=== PATIENT | male | born 1955 | race Caucasian/White ===

== ENCOUNTER 2016-06-21 02:35 | Emergency (ER) | payer OTHER ==
[~2016-06-21] VITALS: Ht 177.8 cm; Wt 95.0 kg
[2016-06-21 02:47] VITALS: BP 133/84; PULSE 82; RESP 16; TEMP 98.3; O2SAT 95
[2016-06-21] MEDS ORDERED: LISI10TA3 PO (02:47)
[2016-06-21] MEDS ORDERED: METF500T PO (02:47)
[2016-06-21] MEDS ORDERED: KETOROLAC TROMETHAMINE 60 MG/2 ML (IM) VIAL IM ONE (03:15)
--- NOTE | 2016-06-21 03:16 | PD ---
HPI Chief Complaint: Fall Time Seen by Provider: 03:13 Travel History International Travel<30 days: No Contact w/Intl Traveler<30days: No Traveled to known affect area: No History of Present Illness HPI 60-year-old white male presents to emergency department by EMS for evaluation of a fall. The patient states that he is currently homeless. [place] He states that [place] and anticipated it only to be a few feet. The patient states that the distance was much greater and fell onto his left side. He denies syncope. He is complaining of pain in his left upper back and ribs. States the pain is mild to moderate. Worse with movement, sitting up and taking a deep breath. He denies injury to his head, neck or lower back. No extremity injury. No injury to his chest anteriorly or to his abdomen. He states that he was traveling from [place] on his way to a woman's house in [facility] when his car broke down. He states he is now homeless on the streets. He is in the process of attempting to get a new vehicle. The patient states that he is disabled. He admits to diabetes and hypertension. Drinks occasionally. No tobacco. PFSH Past Medical History Narrative Medical Chronic neck pain, diabetes, hypertension, homelessness Diabetes: Yes Patient Takes Glucophage: Yes Diminished Hearing: No Hypertension: Yes Tetanus Vaccination: Unknown Influenza Vaccination: No Past Surgical History Narrative Surgical Tonsillectomy Tonsillectomy: Yes Social History Alcohol Use: Yes (RARELY) Tobacco Use: No Substance [facility]: Yes [facility] Allergies-Medications (Allergen,Severity, Reaction): Coded Allergies: No Known Allergies (Unverified , 06/21/16) Reported Meds & Prescriptions Reported Meds & Active Scripts Active Reported Metformin (Metformin HCl) 500 Mg Tab 500 Mg PO BIDPC With meals Lisinopril 10 Mg Tab 10 Mg PO DAILY Review of Systems Except as stated in HPI: all other systems reviewed are Neg Physical Exam Narrative GENERAL: Well-developed, well-nourished in no apparent distress. Nontoxic appearing. HEAD: Normocephalic, atraumatic. EYES: Pupils equal round and reactive. Extraocular motions intact. No scleral icterus. No injection or drainage. ENT: Nose clear. Throat without erythema, tonsillar hypertrophy or exudate. Uvula midline. Airway patent. NECK: Trachea midline. Supple, nontender, moves head freely. No central bony tenderness or spasm. CARDIOVASCULAR: Regular rate and rhythm without murmurs, gallops, or rubs. RESPIRATORY: Clear to auscultation. Breath sounds equal bilaterally. No wheezes , rales, or rhonchi. CHEST: Mild tenderness to the left posterior ribs just below the scapula. Without deformity or crepitance. No retractions or use of accessory muscles. GASTROINTESTINAL: Abdomen soft, non-tender, nondistended. No hepato-splenomegaly , or palpable masses. No guarding. EXTREMITIES: No clubbing, cyanosis, or edema. No joint tenderness. BACK: Nontender without deformity. No flank tenderness. NEUROLOGICAL: Awake, alert and oriented x 3 .Cranial nerves grossly intact. Motor and sensory grossly within normal limits. Normal speech. Data Data Last Documented VS Vital Signs Date Time Temp Pulse Resp B/P Pulse Ox O2 Delivery O2 Flow Rate FiO2 06/21/16 02:47 98.3 82 16 133/84 95 Orders Ribs, Uni (W/Exp Cxr-Min 3vw) (06/21/16 03:03) Ketorolac Inj (Toradol Inj) (06/21/16 03:15) [facility] Medical Decision Making Medical Screen Exam Complete: Yes Emergency Medical Condition: Yes Medical Record Reviewed: Yes Interpretation(s) Last 24 hours Impressions Ribs X-Ray 06/21/16 0303 Signed Impressions: Service Date/Time: Tuesday, June 21, 2016 03:15 - CONCLUSION: Normal examination for a patient of this age. Jae Arredondo MD Differential Diagnosis MDM: High Differential diagnoses: Fracture, sprain, strain, dislocation, contusion, neurovascular injury Narrative Course Patient given Toradol 60 mg IM. X-rays are negative. This is left rib contusion, fall Diagnosis Primary Impression: Contusion of rib on left side Qualified Code: S20.212A - Contusion of rib on left side, initial encounter Additional Impression: Fall Qualified Code: W19.XXXA - Fall, initial encounter Patient Instructions: General Instructions Additional Instructions: Rest. Ice for the next 3 days followed by heat . Flexeril and Voltaren. Deep breaths every half hour. Follow-up with a primary care doctor in one week. Return to the ER for emergencies. Med/Other Pt SpecificInfo: Prescription(s) given Scripts Cyclobenzaprine (Flexeril)10 Mg Tab10 Mg PO TID #21 TAB Prov:Arlette Varner MD 06/21/[address] 75 Mg Tabdr75 Mg PO BID #20 TAB Prov:Arlette Varner MD 06/21/16 Disposition: 01 DISCHARGE HOME Condition: Stable Jae Verduzco Jun 21, 2016 03:16
--- NOTE | 2016-06-21 03:34 | RADRPT ---
EXAM DATE/TIME: 06/21/2016 03:15 [facility] COMPARISON: No previous studies available for comparison. INDICATIONS : Left side rib pain post fall. MEDICAL HISTORY : None. SURGICAL HISTORY : None. ENCOUNTER: Initial ACUITY: 1 day PAIN SCORE: 9/10 LOCATION: Left ribs. FINDINGS: Multiple views of the left ribs were performed. There is no evidence of displaced fracture. No dest ructive lesions or areas of periosteal thickening are seen. Expiratory view of the chest is negative for pneumothorax. The mediastinal structures are midline. CONCLUSION: Normal examination for a patient of this age. Jae Arredondo MD on June 21, 2016 at 3:30 Board Certified Radiologist. This report was verified electronically.
[2016-06-21] MEDS ORDERED: CYCL1TAB29 PO (03:43)
[2016-06-21] MEDS ORDERED: DICL75TA PO (03:43)
== END 2016-06-21 04:31 | disposition home or self-care (01) ==
LOC: EDSEX → NEPB 02:35
DX: S20.212A Contusion of left front wall of thorax, initial encounter (principal); W17.89XA Other fall from one level to another, initial encounter; Y92.832 Beach as the place of occurrence of the external cause; I10 Essential (primary) hypertension; E11.9 Type 2 diabetes mellitus without complications; G89.29 Other chronic pain; Z59.0 Homelessness
CPT/HCPCS: 71101; 96372; J1885

== ENCOUNTER 2016-06-23 09:28 | Inpatient (IN) | payer OTHER, MEDICARE ==
[~2016-06-23] VITALS: Ht 177.8 cm; Wt 122.0 kg
[~2016-06-23 09:28] MED LIST: CYCL1TAB29 PO; DICL75TA PO; LISI10TA3 PO; METF500T PO
[2016-06-23 09:30] VITALS: BP 115/65; PULSE 112; RESP 20; TEMP 98.6; O2SAT 94
--- NOTE | 2016-06-23 10:06 | RADRPT ---
EXAM DATE/TIME: 06/23/2016 09:52 [facility] COMPARISON: No previous studies available for comparison. INDICATIONS: Chest pain. MEDICAL HISTORY: None. SURGICAL HISTORY: None. ENCOUNTER: Initial ACUITY: 1 day PAIN SCORE: 6/10 LOCATION: Left middle chest FINDINGS: A single view of the chest demonstrates there is some air in the left chest wall suspicious for an un derlying pneumothorax. I cannot demonstrate a pneumothorax on today's film on the left side although obviously I am concerned about it. No displaced rib fractures identified. Right lung is clear. He art and mediastinum unremarkable. CONCLUSION: Air within the left chest wall concerning for a left pneumothorax although I cannot clearly demonstra te that on today's single film. lEvis Blanco MD on June 23, 2016 at 9:58 Board Certified Radiologist. This report was verified electronically.
[2016-06-23 10:37] VITALS: BP 129/75; PULSE 100; RESP 18; TEMP 98.2; O2SAT 92
[2016-06-23 10:41] LABS: AUTOMATED NEUTROPHIL # 4.8 TH/MM3 (1.8-7.7); BASOPHIL % 0.2 % (0.0-2.0); EOSINOPHIL # 0.1 TH/MM3 (0-0.4); EOSINOPHIL % 1.8 % (0.0-4.0); HEMATOCRIT 29.2 % (39.0-51.0); HEMO FLAGS DIFF FINAL; LYMPH % 20.6 % (9.0-44.0); LYMPHOCYTE # 1.4 TH/MM3 (1.0-4.8); MEAN CELL VOLUME 92.4 FL (80.0-100.0); MEAN CORPUSCULAR HEMOGLOBIN 31.6 PG (27.0-34.0); MEAN CORPUSCULAR HGB CONC 34.2 % (32.0-36.0); MONO % 7.1 % (0.0-8.0); NEUT % 70.3 % (16.0-70.0); PLATELET COUNT 124 TH/MM3 (150-450); RED BLOOD COUNT 3.16 MIL/MM3 (4.50-5.90); RED CELL DISTRIBUTION WIDTH 12.4 % (11.6-17.2); WHITE BLOOD COUNT 6.8 TH/MM3 (4.0-11.0)
[2016-06-23] MEDS ORDERED: ASPI81CH CHEW (10:46)
[2016-06-23 10:56] LABS: ANION GAP 9 MEQ/L (5-15); BICARBONATE 22.4 MEQ/L (21.0-32.0); BLOOD UREA NITROGEN 26 MG/DL (7-18); CHLORIDE 100 MEQ/L (98-107); GLOMERULAR FILTRATION RATE 45 ML/MIN (>89); POTASSIUM 3.7 MEQ/L (3.5-5.1); SODIUM (NA) 131 MEQ/L (136-145)
[2016-06-23 11:01] LABS: CREATINE KINASE 245 U/L (39-308)
[2016-06-23 11:13] LABS: CKMB 2.5 NG/ML (0.5-3.6)
[2016-06-23] MEDS ORDERED: IOHEXOL 350 MG/ML 10 ML VIAL (for RAD DIAG) IV ONE (12:18)
--- NOTE | 2016-06-23 12:28 | RADRPT ---
EXAM DATE/TIME: 06/23/2016 11:47 [facility] COMPARISON: No previous studies available for comparison. INDICATIONS : Fall two days ago, left side chest and abdomen pain since. IV CONTRAST: 98 cc Omnipaque 350 (iohexol) IV ; Cumulative dose for multiple exams. ORAL CONTRAST: No oral contrast ingested. RADIATION DOSE: 19.49 CTDIvol (mGy) ; Combined studies - Thorax/Abdomen/Pelvis MEDICAL HISTORY : Hypertension. Diabetes mellitus type 2. SURGICAL HISTORY : Tonsillectomy. ENCOUNTER: Initial ACUITY: 2 days PAIN SCALE: 7/10 LOCATION: Left upper quadrant TECHNIQUE: Volumetric scanning of the abdomen and pelvis was performed. Using automated exposure control and ad justment of the mA and/or kV according to patient size, radiation dose was kept as low as reasonably achievable to obtain optimal diagnostic quality images. FINDINGS: Imaging through the lower chest demonstrates a very small anterior pneumothorax on the left. There is extensive subcutaneous emphysema throughout the anterior chest wall and extending along the left up into the left axilla. The appearance of the liver is within normal limits. The exam demonstrates a splenic contusion with a small subcapsular hematoma around the spleen. There is no evidence of active hemorrhage. The examina tion also demonstrates a small amount of hemorrhage in Morison's pouch on the right. The pancreas, adrenal glands and kidneys are intact. There is no retroperitoneal lymphadenopathy. The abdominal aorta is normal in caliber. The visualized loops of small and large bowel are unremarkable. There is a small amount of high density free fluid in the pelvis. No iliac or inguinal adenopathy is seen. The loops of small large bowel are unremarkable. The visualized osseous structures demonstrate a moderately displaced fracture of the left seventh rib . CT imaging of the thorax would be of benefit for further assessment. CONCLUSION: 1. Fracture of the left seventh rib with a very small anterior pneumothorax on the left. 2. Small pleural effusion on the left. 3. Sizable area of contusion within the spleen with subcapsular hemorrhage and a small amount hemorrh age in Morison's pouch as well as the pelvis. No active hemorrhage is identified. Keith Mg MD on June 23, 2016 at 12:19 Board Certified Radiologist. This report was verified electronically.
--- NOTE | 2016-06-23 12:33 | RADRPT ---
EXAM DATE/TIME: 06/23/2016 11:47 [facility] COMPARISON: CT ABDOMEN & PELVIS W CONTRAST, June 23, 2016, 11:47. INDICATIONS : Fall two days ago, left side chest and abdomen pain since. IV CONTRAST: 98 cc Omnipaque 350 (iohexol) IV ; Cumulative dose for multiple exams. RADIATION DOSE: 19.49 CTDIvol (mGy) ; Combined studies - Thorax/Abdomen/Pelvis MEDICAL HISTORY : Hypertension. Diabetes mellitus type 2. SURGICAL HISTORY : Tonsillectomy. ENCOUNTER: Initial ACUITY: 2 days PAIN SCALE: 7/10 LOCATION: Left lateral chest. TECHNIQUE: Volumetric scanning of the chest was performed. Using automated exposure control and adjustment of t he mA and/or kV according to patient size, radiation dose was kept as low as reasonably achievable to obtain optimal diagnostic quality images. FINDINGS: The examination demonstrates extensive subcutaneous emphysema throughout the chest wall. There is very minimal anterior pneumothorax on the left. There is a small left-sided pleural effusion . The heart is normal in size. No pericardial effusion is evident. There is atherosclerotic plaquing in the coronary arteries. Bone windowed images demonstrate fracture of the anterolateral fourth through sixth ribs. There is fr acture of the medial aspect of the seventh, eighth, ninth and 10th ribs at the costovertebral margin. The remainder the visualized osseous structures are intact. The portions of upper abdomen visualized demonstrate a size where a splenic contusion with subcapsula r hemorrhage around the spleen. CONCLUSION: 1. Extensive subcutaneous emphysema. 2. Very small anterior pneumothorax on the left. 3. Fracture of the anterolateral fourth through sixth ribs. 4. Fracture of the medial aspect of the seventh, eighth, ninth and 10th ribs at the costovertebral ma rgin. 5. Sizable splenic contusion with subcapsular hematoma. 6. Minimal pleural effusion the left lung base. Keith Mg MD on June 23, 2016 at 12:26 Board Certified Radiologist. This report was verified electronically.
--- NOTE | 2016-06-23 13:41 | PD ---
HPI Chief Complaint: Chest Pain Time Seen by Provider: 10:30 Travel History International Travel<30 days: No Contact w/Intl Traveler<30days: No Traveled to known affect area: No History of Present Illness HPI This is a 60-year-old male who reports that he [place] 2 nights ago thinking it was going to be 2 feet and ended up being 20 feet. He says he landed on his left side. Ever since then he's been having severe left- sided chest pain and abdominal pain, constant, moderate severity, worse with walking, improved with rest. Patient went to [place] emergency department that evening and was discharged home. He subsequently was seen in our emergency department yesterday and had a chest x-ray performed which was reassuring and was discharged home. Patient presents today because his pain is persistent. PFSH Past Medical History Cancer: Yes (HX OF SKIN CA ) Diabetes: Yes Patient Takes Glucophage: Yes (METFORMIN) Diminished Hearing: No Hypertension: Yes Past Surgical History Tonsillectomy: Yes Social History Alcohol Use: Yes (RARELY) Tobacco Use: No Substance Use: Yes (MARAJUIANA) Allergies-Medications (Allergen,Severity, Reaction): Coded Allergies: No Known Allergies (Unverified , 06/21/16) Reported Meds & Prescriptions Reported Meds & Active Scripts Active Flexeril (Cyclobenzaprine HCl) 10 Mg Tab 10 Mg PO TID Diclofenac Sodium DR (Diclofenac Sodium) 75 Mg Tabdr 75 Mg PO BID Reported Aspirin 81 Mg Chew 81 Mg CHEW DAILY Metformin (Metformin HCl) 500 Mg Tab 500 Mg PO BIDPC With meals Lisinopril 10 Mg Tab 10 Mg PO DAILY Review of Systems Except as stated in HPI: all other systems reviewed are Neg Physical Exam Narrative GENERAL:Well appearing, no acute distress SKIN: Large hematoma along the left flank with ecchymoses involving the umbilicus HEAD: Atraumatic. Normocephalic. EYES: Pupils equal and round. No injection or drainage. ENT: Moist mucous membranes NECK: Trachea midline. CARDIOVASCULAR: Regular rate and rhythm. No murmur appreciated. RESPIRATORY: Clear to auscultation. Breath sounds equal bilaterally. GASTROINTESTINAL: Abdomen soft, diffusely mildly tender to palpation with no rebound or guarding. MUSCULOSKELETAL: No obvious deformities. NEUROLOGICAL: Awake and alert. No obvious cranial nerve deficits. Moving all extremities. PSYCHIATRIC: Appropriate mood and affect; insight and judgment normal. Data Data Last Documented VS Vital Signs Date Time Temp Pulse Resp B/P Pulse Ox O2 Delivery O2 Flow Rate FiO2 06/23/16 10:42 97 20 93 Nasal Cannula 2 06/23/16 10:37 98.2 129/75 Orders Electrocardiogram (06/23/16 09:43) Complete Blood Count With Diff (06/23/16 09:43) Basic Metabolic Panel (Bmp) (06/23/16 09:43) Ckmb (Isoenzyme) Profile (06/23/16 09:43) Troponin I (06/23/16 09:43) Chest, Single Ap (06/23/16 09:43) Iv Access Insert/Monitor (06/23/16 09:43) Ecg Monitoring (06/23/16 09:43) Oxygen Administration (06/23/16 09:43) Oximetry (06/23/16 09:43) CKMB (06/23/16 10:11) CKMB% (06/23/16 10:11) Ct Thorax/ Chest W Iv Contrast (06/23/16 ) Ct Abd/Pel W Iv Contrast(Rout) (06/23/16 ) Type And Screen (06/23/16 11:17) Prothrombin Time / Inr (Pt) (06/23/16 11:17) Act Partial Throm Time (Ptt) (06/23/16 11:17) Iohexol 350 Inj (Omnipaque 350 Inj) (06/23/16 12:18) Admit Order (Ed Use Only) (06/23/16 13:20) Labs Laboratory Tests Test 06/23/16 06/23/16 10:11 11:20 White Blood Count 6.8 TH/MM3 Red Blood Count 3.16 MIL/MM3 Hemoglobin 10.0 GM/DL Hematocrit 29.2 % Mean Corpuscular Volume 92.4 FL Mean Corpuscular Hemoglobin 31.6 PG Mean Corpuscular Hemoglobin 34.2 % Concent Red Cell Distribution Width 12.4 % Platelet Count 124 TH/MM3 Mean Platelet Volume 8.5 FL Neutrophils (%) (Auto) 70.3 % Lymphocytes (%) (Auto) 20.6 % Monocytes (%) (Auto) 7.1 % Eosinophils (%) (Auto) 1.8 % Basophils (%) (Auto) 0.2 % Neutrophils # (Auto) 4.8 TH/MM3 Lymphocytes # (Auto) 1.4 TH/MM3 Monocytes # (Auto) 0.5 TH/MM3 Eosinophils # (Auto) 0.1 TH/MM3 Basophils # (Auto) 0.0 TH/MM3 CBC Comment DIFF FINAL Differential Comment Prothrombin Time 11.0 SEC Prothromb Time International 1.0 RATIO Ratio Activated Partial 26.0 SEC Thromboplast Time Sodium Level 131 MEQ/L Potassium Level 3.7 MEQ/L Chloride Level 100 MEQ/L Carbon Dioxide Level 22.4 MEQ/L Anion Gap 9 MEQ/L Blood Urea Nitrogen 26 MG/DL Creatinine 1.57 MG/DL Estimat Glomerular Filtration 45 ML/MIN Rate Random Glucose 352 MG/DL Calcium Level 7.7 MG/DL Total Creatine Kinase 245 U/L Creatine Kinase MB 2.5 NG/ML Troponin I 0.27 NG/ML Blood Type O NEGATIVE Antibody Screen NEGATIVE Blood Bank Comment MDM Medical Decision Making Medical Screen Exam Complete: Yes Emergency Medical Condition: Yes Interpretation(s) Afebrile, tachycardic, mild hypoxia Hemoglobin is 10 Renal insufficiency Troponin is 0.27 Differential Diagnosis Splenic rupture, liver laceration, pneumothorax, rib fracture, cardiac contusion Narrative Course This is a 60-year-old male who presents to the emergency department having fallen off of a 20 foot [place] 2 nights ago. He has impressive bruising along his flank and abdomen. He was placed on a monitor and an IV was established. Labs were obtained which demonstrates some anemia. His CT was found to have extensive subcutaneous emphysema with a small anterior pneumothorax on the left. He has fractures of the fourth through 10th ribs and a sizable splenic contusion with subcapsular hematoma with hemorrhage in Alba's pouch. He does have an elevated troponin which I suspect is secondary to cardiac contusion. He has a reassuring EKG. Patient will be admitted to the intensive care unit for further management. I added a CT of the head and cervical spine, although he denies hitting his head given the significance of the symptoms. Diagnosis Primary Impression: Subcapsular hemorrhage of spleen Additional Impression: Pneumothorax Qualified Code: S27.0XXA - Traumatic pneumothorax, initial encounter Admitting Information Admitting Physician Requests: Admit Agustina Nugent MD Jun 23, 2016 13:41
[2016-06-23] MEDS: SODIUM CHLOR 0.9% 1000 ML INJ 1,000 ML IV SCH (14:16)
[2016-06-23] MEDS ORDERED: ONDANSETRON HCL 4 MG/2 ML VIAL IV PRN (14:30)
[2016-06-23] MEDS: PANTOPRAZOLE SODIUM 40 MG VIAL IVP SCH (14:30)
[2016-06-23] MEDS ORDERED: SODIUM CHLORIDE 0.9% FLUSH 5 ML FLUSH IVF PRN (14:30)
[2016-06-23] MEDS ORDERED: CHLORHEXIDINE GLUCONATE 2 % 1 PACK (2 CLOTHS) TOP PRN (14:30)
[2016-06-23] MEDS ORDERED: ENALAPRILAT 1.25 MG/ML VIAL IV PRN (14:30)
[2016-06-23] MEDS ORDERED: MISCELLANEOUS NURSING INFORMATION XX SCH (14:30)
[2016-06-23 17:00] VITALS: BP 115/69; PULSE 108; RESP 18; O2SAT 88
--- NOTE | 2016-06-23 18:03 | HHI.HP ---
HPI Service Critical Care Medicine Primary Care Physician No Primary Care Physician Admission Diagnosis splenic rupture, pneumothorax Diagnosis: Chief Complaint: Left-sided chest pain Travel History International Travel<30 Days: No Contact w/Intl Traveler <30 Da: No Traveled to Known Affected Are: No History of Present Illness This is a 60-year-old male who reports that [place] 2 [place] thinking it was going to be 2 feet and ended up being 20 feet. He says he landed on his left side. Ever since then he's been having severe left- sided chest pain and abdominal pain, constant, moderate severity, worse with walking, improved with rest. Patient went to [place] emergency department that evening and was discharged home. Yesterday he was seen at [place] ER and was sent home as well. CT scan performed today demonstrates left-sided rib fractures with hemopneumothorax and subcutaneous emphysema as well as a sub- capsular splenic hematoma. Review of Systems Constitutional: DENIES: Diaphoretic episodes, Fatigue, Fever, Weight gain, Weight loss, Chills, Dizziness, Change in appetite, Night Sweats Endocrine: DENIES: Heat/cold intolerance, Polydipsia, Polyuria, Polyphagia Eyes: DENIES: Blurred vision, Diplopia, Eye inflammation, Eye pain, Vision loss , Photosensitivity, Double Vision Ears, nose, mouth, throat: DENIES: Tinnitus, Hearing loss, Vertigo, Nasal discharge, Oral lesions, Throat pain, Hoarseness, Ear Pain, Running Nose, Epistaxis, Sinus Pain, Toothache, Odynophagia Respiratory: COMPLAINS OF: Hemoptysis (scant, dark) Cardiovascular: COMPLAINS OF: Chest pain, Dyspnea on Exertion Gastrointestinal: COMPLAINS OF: Abdominal pain (left upper quadrant), DENIES: Black stools, Bloody stools, Constipation, Diarrhea, Nausea, Vomiting Genitourinary: DENIES: Sexual dysfunction, Urinary frequency, Urinary incontinence, Urgency, Hematuria, Dysuria, Nocturia, Penile Discharge, Testicular Pain, Testicular Swelling Musculoskeletal: COMPLAINS OF: Muscle aches (and realized), Back pain Integumentary: DENIES: Abnormal pigmentation, Nail changes, Pruritus, Rash Hematologic/lymphatic: COMPLAINS OF: Bruising (periumbilical and left flank) Immunologic/allergic: DENIES: Eczema, Urticaria Neurologic: DENIES: Abnormal gait, Headache, Localized weakness, Paresthesias, Seizures, Speech Problems, Tremor, Poor Balance Psychiatric: DENIES: Anxiety, Confusion, Mood changes, Depression, Hallucinations, Agitation, Suicidal Ideation, Homicidal Ideation, Delusions Past Family Social History Allergies: Coded Allergies: No Known Allergies (Unverified , 06/21/16) Past Medical History Hypertension Diabetes Skin cancer right forearm Past Surgical History Tonsillectomy Reported Medications Current Medications Medications (Trade) Dose Ordered Sig/Shahana Route PRN Reason Start Time Stop Time Status Last Admin Dose Admin Sodium Chloride (NS 1000 ml Inj) 1,000 ml @ 100 mls/hr Q10H IV 06/23/16 14:16 06/23/16 14:16 IV Flush (NS Flush) 2 ml UNSCH PRN IVF FLUSH AFTER USING IV ACCESS 06/23/16 14:30 Acetaminophen (Tylenol) 650 mg Q6H PRN PO TEMPERATURE > 102 F 06/23/16 14:30 Enalaprilat (Vasotec Inj) 1.25 mg Q8H PRN IV SBP>180, DBP>95 06/23/16 14:30 Ondansetron HCl (Zofran Inj) 4 mg Q6H PRN IV NAUSEA OR VOMITING 06/23/16 14:30 Pantoprazole Sodium (Protonix Inj) 40 mg Q24H IVP 06/23/16 14:30 06/23/16 14:30 Docusate Sodium (Colace) 100 mg BID PO 06/23/16 21:00 Magnesium Hydroxide (Milk Of Magnesia Liq) 30 ml HS PO 06/23/16 21:00 Miscellaneous Information 1 [id number] XX 06/23/16 14:30 Chlorhexidine Gluconate (Chlorhexidine 2% Cloth) 3 pack Taper DAILY@04 TOP 06/24/16 04:00 06/20/17 03:59 Chlorhexidine Gluconate (Chlorhexidine 2% Cloth) 3 pack UNSCH PRN TOP HYGIENIC CARE 06/23/16 14:30 Family History Reviewed not relevant Social History Denies alcohol tobacco or drug use Physical Exam Vital Signs Vital Signs Date Time Temp Pulse Resp B/P Pulse Ox O2 Delivery O2 Flow Rate FiO2 06/23/16 10:42 97 20 93 Nasal Cannula 2 06/23/16 10:37 92 Room Air 06/23/16 10:37 98.2 100 18 129/75 92 Room Air 06/23/16 09:30 98.6 112 20 115/65 94 Room Air Physical Exam Alert and oriented no acute distress Head atraumatic normocephalic pupils equal round reactive to light extraocular movements intact sclerae nonicteric conjunctiva is pink Neck soft trachea is midline there is no cervical tenderness to palpation Lungs clear to auscultation bilaterally, there is no tenderness or crepitus to palpation of his clavicles or right chest wall, he has left chest wall tenderness to palpation Abdomen soft with left upper quadrant tenderness no peritonitis, large hematoma over his left flank and abdomen and small periumbilical hematoma Pelvis stable nontender, femoral pulses are palpable bilaterally No clubbing cyanosis or edema dorsalis pedis pulses are palpable bilaterally Patient's mood and affect are appropriate Cranial nerves II through XII are grossly intact, he has no focal neurologic deficit Laboratory Laboratory Tests Test 06/23/16 06/23/16 10:11 11:20 White Blood Count 6.8 Red Blood Count 3.16 Hemoglobin 10.0 Hematocrit 29.2 Mean Corpuscular Volume 92.4 Mean Corpuscular Hemoglobin 31.6 Mean Corpuscular Hemoglobin 34.2 Concent Red Cell Distribution Width 12.4 Platelet Count 124 Mean Platelet Volume 8.5 Neutrophils (%) (Auto) 70.3 Lymphocytes (%) (Auto) 20.6 Monocytes (%) (Auto) 7.1 Eosinophils (%) (Auto) 1.8 Basophils (%) (Auto) 0.2 Neutrophils # (Auto) 4.8 Lymphocytes # (Auto) 1.4 Monocytes # (Auto) 0.5 Eosinophils # (Auto) 0.1 Basophils # (Auto) 0.0 CBC Comment DIFF FINAL Differential Comment Prothrombin Time 11.0 Prothromb Time International 1.0 Ratio Activated Partial 26.0 Thromboplast Time Sodium Level 131 Potassium Level 3.7 Chloride Level 100 Carbon Dioxide Level 22.4 Anion Gap 9 Blood Urea Nitrogen 26 Creatinine 1.57 Estimat Glomerular Filtration 45 Rate Random Glucose 352 Calcium Level 7.7 Total Creatine Kinase 245 Creatine Kinase MB 2.5 Troponin I 0.27 Blood Type O NEGATIVE Antibody Screen NEGATIVE Blood Bank Comment Result Diagram: 06/23/16 1011 06/23/16 1011 Assessment and Plan Assessment and Plan Admit patient to the trauma ICU for serial hemoglobins, aggressive pulmonary toilet and pain control for his left-sided rib fractures with hemopneumothorax and capsular splenic hematoma Repeat chest x-ray in the morning Code Status Full code Alberto Raymundo MD Jun 23, 2016 18:03
[2016-06-23 18:17] LABS: REVIEW FLAG FINAL
[2016-06-23 20:00] VITALS: BP 106/52; PULSE 108; RESP 24; TEMP 100.5; O2SAT 93
[2016-06-23] MEDS ORDERED: POTASSIUM PHOSPHATE MONOBASIC 500 MG TAB PO PRN (21:15)
[2016-06-23] MEDS ORDERED: MAGNESIUM OXIDE 400 MG TAB PO PRN (21:15)
[2016-06-23] MEDS ORDERED: POTASSIUM CL 40 MEQ/30 ML LIQ UDC PO/TUBE PRN ×2 (21:15)
[2016-06-23] MEDS ORDERED: MAGNESIUM SULFATE INJ 4 GM in SODIUM CHLORIDE 0.9% INJ 92 ML IV PRN (21:15)
[2016-06-23] MEDS ORDERED: MAGNESIUM SULFATE INJ 2 GM in SODIUM CHLORIDE 0.9% INJ 96 ML IV PRN (21:15)
[2016-06-23] MEDS ORDERED: POTASSIUM CHLOR 40 MEQ PREMIX 100 ML IV PRN ×2 (21:15)
[2016-06-23] MEDS ORDERED: POTASSIUM PHOSPHATE INJ 30 MMOL in SODIUM CHLOR 0.9% 250 ML INJ 250 ML IV PRN (21:15)
[2016-06-23] MEDS ORDERED: SODIUM PHOSPHATE INJ 30 MMOL in SODIUM CHLOR 0.9% 250 ML INJ 240 ML IV PRN (21:15)
[2016-06-23] MEDS ORDERED: POTASSIUM CHLOR 20 MEQ PREMIX 100 ML IV PRN ×2 (21:15)
[2016-06-23] MEDS ORDERED: POTASSIUM PHOSPHATE MONOBASIC 500 MG TAB PO/TUBE PRN (21:15)
[2016-06-23] MEDS: ACETAMINOPHEN 325 MG TAB PO PRN (21:31)
[2016-06-23 22:00] VITALS: PULSE 108
[2016-06-23 23:04] LABS: HEMATOCRIT 27.5 % (39.0-51.0); REVIEW FLAG FINAL
[2016-06-24] VITALS (9 sets, daily range): BP systolic 101–166; BP diastolic 60–93; PULSE 80–108; RESP 17–25; TEMP 98.6–100.9; O2SAT 91–96
[2016-06-24] MEDS: DOCUSATE SODIUM 100 MG CAP PO SCH ×3 (02:24→19:46)
[2016-06-24] MEDS: MAGNESIUM HYDROXIDE SUSP 30 ML CUP PO SCH ×2 (02:24→19:46)
[2016-06-24] MEDS: SODIUM CHLOR 0.9% 1000 ML INJ 1,000 ML IV SCH ×2 (02:25→08:22)
[2016-06-24] MEDS ORDERED: CHLORHEXIDINE GLUCONATE 2 % 1 PACK (2 CLOTHS) TOP SCH (04:00)
[2016-06-24 06:02] LABS: PROTHROMBIN TIME - PATIENT 11.1 SEC (9.8-11.6)
[2016-06-24 06:04] LABS: AUTOMATED NEUTROPHIL # 3.9 TH/MM3 (1.8-7.7); BASOPHIL % 0.3 % (0.0-2.0); EOSINOPHIL # 0.2 TH/MM3 (0-0.4); EOSINOPHIL % 2.9 % (0.0-4.0); HEMATOCRIT 29.2 % (39.0-51.0); HEMO FLAGS DIFF FINAL; LYMPH % 19.1 % (9.0-44.0); LYMPHOCYTE # 1.1 TH/MM3 (1.0-4.8); MEAN CELL VOLUME 93.9 FL (80.0-100.0); MEAN CORPUSCULAR HEMOGLOBIN 31.9 PG (27.0-34.0); MONO % 8.7 % (0.0-8.0); PLATELET COUNT 144 TH/MM3 (150-450); RED BLOOD COUNT 3.11 MIL/MM3 (4.50-5.90); RED CELL DISTRIBUTION WIDTH 12.6 % (11.6-17.2); WHITE BLOOD COUNT 5.6 TH/MM3 (4.0-11.0)
--- NOTE | 2016-06-24 06:26 | RADRPT ---
EXAM DATE/TIME: 06/24/2016 03:48 [facility] COMPARISON: CHEST SINGLE AP, June 23, 2016, 9:52. CT THORAX W CONTRAST, June 23, 2016, 11:47. INDICATIONS : Shortness of breath. MEDICAL HISTORY : None. SURGICAL HISTORY : None. ENCOUNTER: Subsequent ACUITY: 2 days PAIN SCORE: Non-responsive. LOCATION: chest FINDINGS: Extensive subcutaneous emphysema persists, mainly on the left. There is contusion or infiltrate in th e left lung base which is grossly stable. Right lung is clear. Cardiac contours are unchanged. CONCLUSION: No significant change Emilio Jaquez MD on June 24, 2016 at 6:23 Board Certified Radiologist. This report was verified electronically.
[2016-06-24 06:30] LABS: ANION GAP 7 MEQ/L (5-15); AST (GOT) 155 U/L (15-37); BICARBONATE 25.7 MEQ/L (21.0-32.0); BLOOD UREA NITROGEN 16 MG/DL (7-18); CHLORIDE 107 MEQ/L (98-107); GLOMERULAR FILTRATION RATE 64 ML/MIN (>89); POTASSIUM 4.1 MEQ/L (3.5-5.1); SODIUM (NA) 140 MEQ/L (136-145)
[2016-06-24 06:33] LABS: ALKALINE PHOSPHATASE 76 U/L (45-117); ALT (GPT) 293 U/L (12-78); TOTAL BILIRUBIN ADULT 0.8 MG/DL (0.2-1.0)
[2016-06-24] MEDS ORDERED: GLUCAGON 1 MG/ML VIAL OTHER PRN (08:30)
[2016-06-24] MEDS ORDERED: DEXTROSE 50% IN WATER 50 ML VIAL(D50) IV PUSH PRN (08:30)
[2016-06-24] MEDS: INSULIN NovoLIN REGULAR SUPPLEMENTAL SCALE SQ SCH ×3 (09:58→19:48)
[2016-06-24] MEDS: LISINOPRIL 10 MG TAB PO SCH (09:58)
[2016-06-24 11:22] LABS: HEMATOCRIT 30.2 % (39.0-51.0); REVIEW FLAG FINAL
--- NOTE | 2016-06-24 14:45 | HHI.CCPN ---
Subjective Brief History Patient fell from 20 feet after he misjudged the height of the [place] he lives on his left side. 2 days prior to presentation he was evaluated [facility] emergency department and discharged. One day later he was evaluated in the [facility] ED and was discharged after an x-ray was obtained. With increasing pain and he returned to [facility] and a CT scan was ordered which demonstrated 7 left-sided rib fractures with a very small anterior pneumothorax large amount of subcutaneous emphysema and subcapsular splenic laceration. He was admitted for serial abdominal exams, serial hemoglobins and a repeat chest x-ray 24 Hour Review/Hospital Course 06/24/16 Patient is doing well he's hemodynamically stable and his chest x-ray remained stable he's tolerating a diet and his pain appears controlled. Objective Vital Signs Date Time Temp Pulse Resp B/P Pulse Ox O2 Delivery O2 Flow Rate FiO2 06/24/16 12:00 98.7 93 25 116/85 96 06/24/16 08:00 Room Air 06/23/16 10:42 2 Intake and Output 06/23/16 06/23/16 06/24/16 08:00 16:00 00:00 Intake Total 480 ml Output Total 1600 ml Balance -1120 ml Result Diagram: 06/24/16 1036 06/24/16 0453 Imaging Last 24 hours Impressions Chest X-Ray 06/24/16 0600 Signed Impressions: Service Date/Time: Friday, June 24, 2016 03:48 - CONCLUSION: No significant change Emilio Jaquez MD Exam [facility] [employer] Alert and oriented, no acute distress Hemodynamic/Cardiac Regular rate and rhythm Pulmonary/Respiratory Clear to auscultation bilaterally Abdomen/GI Nutrition Soft nontender nondistended Renal/I&O Adequate urine output, BUN/creatinine within normal limits Assessment and Plan Plan 4 left-sided rib fractures subcapsular splenic rupture with small anterior left pneumothorax and subcutaneous emphysema and a large left flank hematoma -Transfer to the floor today -Check hemoglobin in the morning, stop serial hemoglobins -Continue physical therapy -Continue pain control with oral analgesics -Likely discharge in the morning Alberto Raymundo MD Jun 24, 2016 14:45
[2016-06-24] MEDS: PANTOPRAZOLE SODIUM 40 MG VIAL IVP SCH (15:16)
[2016-06-24] MEDS ORDERED: guaiFENesin E.R. 600 MG TAB PO ONE (21:00)
[2016-06-24] MEDS: ACETAMINOPHEN 325 MG TAB PO PRN (21:03)
--- NOTE | 2016-06-24 23:43 | EKG ---
Date Performed: 06/23/2016 Time Performed: 10:06:46 PTAGE: 60 years EKG: SINUS TACHYCARDIA LOW QRS VOLTAGE IN PRECORDIAL LEADS ABNORMAL RHYTHM ECG INTERPRETATION BA SED ON A DEFAULT AGE OF 40 YEARS NO PREVIOUS TRACING DOCTOR: Page Stephen Interpretating Date/Time 06/24/2016 23:41:29
[2016-06-25 00:23] VITALS: BP 113/72; PULSE 99; RESP 18; TEMP 99.7; O2SAT 96
[2016-06-25 05:09] VITALS: BP 127/79; PULSE 98; RESP 18; TEMP 99.2; O2SAT 95
[2016-06-25] MEDS: INSULIN NovoLIN REGULAR SUPPLEMENTAL SCALE SQ SCH ×4 (05:37→19:29)
[2016-06-25 08:00] VITALS: BP 111/69; PULSE 101; RESP 20; TEMP 98.4; O2SAT 95
[2016-06-25] MEDS ORDERED: MILKSUS PO (08:03)
[2016-06-25] MEDS ORDERED: DOCU1CAP39 PO (08:03)
[2016-06-25] MEDS: DOCUSATE SODIUM 100 MG CAP PO SCH ×2 (08:42→19:28)
[2016-06-25] MEDS: LISINOPRIL 10 MG TAB PO SCH ×2 (09:00→12:31)
[2016-06-25] MEDS ORDERED: OXYC1TAB63 PO (10:52)
--- NOTE | 2016-06-25 11:26 | HHI.PR ---
Subjective Subjective Notes PTD: 4; HD: 2 Patient complains of increased pain and discomfort. Additionally he complains that he is dizzy as he gets up and attempts to walk. Objective Vitals/I&O Vital Signs Date Time Temp Pulse Resp B/P Pulse Ox O2 Delivery O2 Flow Rate FiO2 06/25/16 08:00 98.4 101 20 111/69 95 06/24/16 20:50 Room Air 06/23/16 10:42 2 Labs Laboratory Tests Test 06/23/16 06/23/16 06/24/16 06/24/16 10:11 11:20 04:53 10:36 Activated Partial 26.0 SEC Thromboplast Time Total Creatine Kinase 245 U/L Creatine Kinase MB 2.5 NG/ML Troponin I 0.27 NG/ML Blood Type O NEGATIVE Antibody Screen NEGATIVE Blood Bank Comment White Blood Count 5.6 TH/MM3 Red Blood Count 3.11 MIL/MM3 Mean Corpuscular Volume 93.9 FL Mean Corpuscular Hemoglobin 31.9 PG Mean Corpuscular Hemoglobin 34.0 % Concent Red Cell Distribution Width 12.6 % Platelet Count 144 TH/MM3 Mean Platelet Volume 8.5 FL Neutrophils (%) (Auto) 69.0 % Lymphocytes (%) (Auto) 19.1 % Monocytes (%) (Auto) 8.7 % Eosinophils (%) (Auto) 2.9 % Basophils (%) (Auto) 0.3 % Neutrophils # (Auto) 3.9 TH/MM3 Lymphocytes # (Auto) 1.1 TH/MM3 Monocytes # (Auto) 0.5 TH/MM3 Eosinophils # (Auto) 0.2 TH/MM3 Basophils # (Auto) 0.0 TH/MM3 CBC Comment DIFF FINAL Differential Comment Prothrombin Time 11.1 SEC Prothromb Time International 1.0 RATIO Ratio Sodium Level 140 MEQ/L Potassium Level 4.1 MEQ/L Chloride Level 107 MEQ/L Carbon Dioxide Level 25.7 MEQ/L Anion Gap 7 MEQ/L Blood Urea Nitrogen 16 MG/DL Creatinine 1.15 MG/DL Estimat Glomerular Filtration 64 ML/MIN Rate Random Glucose 339 MG/DL Calcium Level 8.2 MG/DL Total Bilirubin 0.8 MG/DL Aspartate Amino Transf 155 U/L (AST/SGOT) Alanine Aminotransferase 293 U/L (ALT/SGPT) Alkaline Phosphatase 76 U/L Total Protein 6.5 GM/DL Albumin 2.9 GM/DL Hemoglobin 10.2 GM/DL Hematocrit 30.2 % Radiology Last Impressions Chest X-Ray 06/24/16 0600 Signed Impressions: Service Date/Time: Friday, June 24, 2016 03:48 - CONCLUSION: No significant change Emilio Jaquez MD Chest CT 06/23/16 0000 Signed Impressions: Service Date/Time: June 11:47 - CONCLUSION: 1. Extensive subcutaneous emphysema. 2. Very small anterior pneumothorax on the left. 3. Fracture of the anterolateral fourth through sixth ribs. 4. Fracture of the medial aspect of the seventh, eighth, ninth and 10th ribs at the costovertebral margin. 5. Sizable splenic contusion with subcapsular hematoma. 6. Minimal pleural effusion the left lung base. Keith Mg MD Abdomen/Pelvis CT 06/23/16 0000 Signed Impressions: Service Date/Time: June 11:47 - CONCLUSION: 1. Fracture of the left seventh rib with a very small anterior pneumothorax on the left. 2. Small pleural effusion on the left. 3. Sizable area of contusion within the spleen with subcapsular hemorrhage and a small amount hemorrhage in Morison's pouch as well as the pelvis. No active hemorrhage is identified. Keith Mg MD Narrative Exam GENERAL: This is a 60-year-old male sitting up in bed in no acute distress, just painful. SKIN: Warm and dry. (Bruising noted to left flank and abdomen area) HEAD: Atraumatic. Normocephalic. EYES: PERRLA ENT: No nasal bleeding or discharge. Mucous membranes pink and moist. NECK: Trachea midline. No JVD. CARDIOVASCULAR: Regular rate and rhythm. RESPIRATORY: No accessory muscle use. Lungs are clear to auscultation. Breath sounds equal bilaterally. No distress or dyspnea. GASTROINTESTINAL: BS + x 4 quads. Abdomen soft, non-tender, nondistended. MUSCULOSKELETAL: Extremities without cyanosis, or edema. + peripheral pulses x 4 extremities. Warm with good capillary refill and sensation. MAEW. NEUROLOGICAL: Awake and alert. Normal speech and pattern. A/P Problem List: (1) Pneumothorax (2) Fall (3) Subcapsular hemorrhage of spleen (4) Contusion of rib on left side Assessment and Plan [place]: This is a 62-year-old male who, 2 days prior to admission stated he jumped off a [place]. He thought it was going to be a jump of 2 feet , but he actually fell 20 feet. He landed on his left side. He was having increasing pain, therefore he went [facility], but was subsequently discharged. He came to our hospital the day prior to admission received an x- ray and then was discharged. He continued with increasing pain therefore he came again to our emergency room and was admitted. INJURIES: Sub-Q emphysema Small LEFT anterior PTX LEFT rib fx (4-10) Splenic contusion with hemorrhage Bruising Flank and abdomen Diet: Regular diabetic diet. Tolerating po diet. Encourage good po intake with each meal. Pulmonary: Encourage good pulmonary toileting. IS at bedside and pt encouraged to use. Rationale for use explained to patient, and verbalized understanding. PAIN Management: Roxicodone by mouth. Activity: OOB. PT and OT ordered. GI prophylaxis: Protonix IV. Bowel regimen: Colace and MOM. No BM yet. DVT prophylaxis: Mechanical VTE with SCDs. Chemical management TBD. DC Planning: Case management consulted for assistance with final discharge disposition. Plan was for discharge today, however patient's pain is not controlled as of yet, and he is complaining of dizziness upon standing. Emotional support provided to patient at bedside and plan of care discussed. Discussed with RN at bedside Patient is hemodynamically stable and being managed on the med/surg floor. Attending Statement The exam, history, and the medical decision-making described in the above note were completed with the assistance of the mid-level provider. I reviewed and agree with the findings presented. I attest that I had a [id number] encounter with the patient on the same day, and personally performed and documented my assessment and findings in the medical record. Problem Qualifiers (1) Pneumothorax: Qualified Code: S27.0XXA - Traumatic pneumothorax, initial encounter (2) Fall: Qualified Code: W19.XXXD - Fall, subsequent encounter (3) Contusion of rib on left side: Qualified Code: S20.212A - Contusion of rib on left side, initial encounter Sabrina Avalos Jun 25, 2016 11:26 Alberto Raymundo MD Jun 26, 2016 12:48
[2016-06-25 12:00] VITALS: BP 134/77; PULSE 133; RESP 21; TEMP 100.8; O2SAT 97
[2016-06-25] MEDS: PANTOPRAZOLE SODIUM 40 MG VIAL IVP SCH (12:36)
[2016-06-25 16:05] VITALS: BP 107/62; PULSE 110; RESP 18; TEMP 96.6; O2SAT 93
[2016-06-25] MEDS: MAGNESIUM HYDROXIDE SUSP 30 ML CUP PO SCH (19:29)
[2016-06-25] MEDS: ACETAMINOPHEN 325 MG TAB PO PRN (19:37)
[2016-06-25 20:00] VITALS: BP 119/73; PULSE 118; RESP 20; TEMP 100.6; O2SAT 93
[2016-06-25] MEDS ORDERED: guaiFENesin E.R. 600 MG TAB PO SCH (21:00)
[2016-06-26] VITALS: BP 92/60; PULSE 100; RESP 16; TEMP 98.2; O2SAT 94
[2016-06-26] MEDS: INSULIN NovoLIN REGULAR SUPPLEMENTAL SCALE SQ SCH ×2 (05:48→11:53)
[2016-06-26 08:00] VITALS: BP 119/73; PULSE 109; RESP 18; TEMP 100.6; O2SAT 94
[2016-06-26] MEDS: LISINOPRIL 10 MG TAB PO SCH (09:49)
[2016-06-26] MEDS: DOCUSATE SODIUM 100 MG CAP PO SCH (09:49)
--- NOTE | 2016-06-26 12:09 | HHI.DS ---
Discharge Summary Admission Date Jun 23, 2016 at 13:21 Discharge Date: Jun 26, 2016 Admitting Diagnosis splenic rupture, pneumothorax (1) Pneumothorax Diagnosis: Principal (2) Fall Diagnosis: Principal (3) Subcapsular hemorrhage of spleen Diagnosis: Principal (4) Contusion of rib on left side Diagnosis: Principal Brief History Jump/fall. CBC/BMP: 06/24/16 1036 06/24/16 0453 Significant Findings Laboratory Tests Test 06/23/16 06/23/16 06/24/16 06/24/16 17:45 22:49 04:53 10:36 Hemoglobin 10.5 GM/DL 9.5 GM/DL 9.9 GM/DL 10.2 GM/DL (13.0-17.0) (13.0-17.0) (13.0-17.0) (13.0-17.0) Hematocrit 31.0 % 27.5 % 29.2 % 30.2 % (39.0-51.0) (39.0-51.0) (39.0-51.0) (39.0-51.0) Red Blood Count 3.11 MIL/MM3 (4.50-5.90) Platelet Count 144 TH/MM3 (150-450) Monocytes (%) (Auto) 8.7 % (0.0-8.0) Estimat Glomerular Filtration 64 ML/MIN (>89) Rate Random Glucose 339 MG/DL (74-106) Calcium Level 8.2 MG/DL (8.5-10.1) Aspartate Amino Transf 155 U/L (15-37) (AST/SGOT) Alanine Aminotransferase 293 U/L (12-78) (ALT/SGPT) Albumin 2.9 GM/DL (3.4-5.0) Imaging Last Impressions Chest X-Ray 06/24/16 0600 Signed Impressions: Service Date/Time: Friday, June 24, 2016 03:48 - CONCLUSION: No significant change Emilio Jaquez MD Chest CT 06/23/16 0000 Signed Impressions: Service Date/Time: June 11:47 - CONCLUSION: 1. Extensive subcutaneous emphysema. 2. Very small anterior pneumothorax on the left. 3. Fracture of the anterolateral fourth through sixth ribs. 4. Fracture of the medial aspect of the seventh, eighth, ninth and 10th ribs at the costovertebral margin. 5. Sizable splenic contusion with subcapsular hematoma. 6. Minimal pleural effusion the left lung base. Keith Mg MD Abdomen/Pelvis CT 06/23/16 0000 Signed Impressions: Service Date/Time: June 11:47 - CONCLUSION: 1. Fracture of the left seventh rib with a very small anterior pneumothorax on the left. 2. Small pleural effusion on the left. 3. Sizable area of contusion within the spleen with subcapsular hemorrhage and a small amount hemorrhage in Morison's pouch as well as the pelvis. No active hemorrhage is identified. Keith Mg MD PE at Discharge GENERAL: This is a 60-year-old male sitting up in bed in no acute distress, just painful. SKIN: Warm and dry. (Bruising noted to left flank and abdomen area) HEAD: Atraumatic. Normocephalic. EYES: PERRLA ENT: No nasal bleeding or discharge. Mucous membranes pink and moist. NECK: Trachea midline. No JVD. CARDIOVASCULAR: Regular rate and rhythm. RESPIRATORY: No accessory muscle use. Lungs are clear to auscultation. Breath sounds equal bilaterally. No distress or dyspnea. GASTROINTESTINAL: BS + x 4 quads. Abdomen soft, non-tender, nondistended. MUSCULOSKELETAL: Extremities without cyanosis, or edema. + peripheral pulses x 4 extremities. Warm with good capillary refill and sensation. MAEW. NEUROLOGICAL: Awake and alert. Normal speech and pattern. Hospital Course [place]: This is a 62-year-old male who, 2 days prior to admission stated he jumped off a [place]. He thought it was going to be a jump of 2 feet , but he actually fell 20 feet. He landed on his left side. He was having increasing pain, therefore he went [facility] ER, but was subsequently discharged. He came to our hospital the day prior to admission received an x- ray and then was discharged. He continued with increasing pain therefore he came again to our emergency room and was admitted. INJURIES: Sub-Q emphysema Small LEFT anterior PTX LEFT rib fx (4-10) Splenic contusion with hemorrhage Bruising Flank and abdomen The patient is now tolerating a po diet. Eating and drinking well. Pain is being managed well with PO pain medications, and patient is being a provided with a script for pain meds upon discharge. (NO driving while taking narcotic pain medication enforced to patient.) Pt is having regular bowel movements, and have recommended to patient to continue with stool softeners while taking narcotic pain medications to prevent constipation. Pt has been participating in PT and OT while admitted at [facility] and has been ambulating with their assistance and independently . No PT recommendations for home. All follow up appointments have been provided and discussed with the patient. It is recommended that the patient keeps all his follow up appointments for continued recovery. Therefore, the patient is stable to be safely discharged home from a trauma surgery standpoint. Thank you for allowing us to participate in his care. We wish Venecia the best in his recovery. Pt Condition on Discharge: Stable Discharge Disposition: Discharge Home Discharge Instructions DIET: Follow Instructions for: Diabetic Diet Activities you can perform: Regular-No Restrictions, Shower/Bath Activities to Avoid: Driving for 24 hrs, Concussion Sports, Contact Sports, Strenuous Activity Attending Statement The exam, history, and the medical decision-making described in the above note were completed with the assistance of the mid-level provider. I reviewed and agree with the findings presented. I attest that I had a [id number] encounter with the patient on the same day, and personally performed and documented my assessment and findings in the medical record. Sabrina Avalos Jun 26, 2016 12:09 Alberto Raymundo MD Jun 27, 2016 07:09
== END 2016-06-26 12:16 | disposition home or self-care (01) | DRG 964 ==
LOC: NEPE 09:28 → NEDA 13:21 → NEDH 16:45 → N03B 18:42 → N07B 06-24 14:31
PROVIDERS: ADMIT Surgery; ATTEND Surgery
DX: S27.0XXA Traumatic pneumothorax, initial encounter (principal); S36.030A Superficial (capsular) laceration of spleen, initial encounter; S22.42XA Multiple fractures of ribs, left side, initial encounter for closed fracture; T79.7XXA Traumatic subcutaneous emphysema, initial encounter; S30.1XXA Contusion of abdominal wall, initial encounter; I10 Essential (primary) hypertension; E11.9 Type 2 diabetes mellitus without complications; Z79.84 Long term (current) use of oral hypoglycemic drugs; W17.89XA Other fall from one level to another, initial encounter; Y92.89 Other specified places as the place of occurrence of the external cause
CPT/HCPCS: 71010; 71101; 71260; 74177; 80048; 80053; 82550; 82552; 82948; 84484; 85014; 85018; 85025; 85610; 85730; 86850; 86900; 86901; 93005; 94150; 94640; 94667; 94668; 96372; C9113; J1885; J7030; Q9967

== ENCOUNTER 2017-05-05 22:18 | Emergency (ER) | payer MEDICARE, OTHER ==
[~2017-05-05 22:18] MED LIST changes: +ASPI-516 CHEW; +CYCL10TA PO; -CYCL1TAB29 PO; +DOCU1CAP39 PO; +MILKSUS PO; +OXYC1TAB63 PO
[2017-05-05 22:23] VITALS: BP 205/115; PULSE 102; RESP 16; TEMP 99.4; O2SAT 96
--- NOTE | 2017-05-06 02:21 | PD ---
HPI Chief Complaint: Psychiatric Symptoms Time Seen by Provider: 01:50 Travel History International Travel<30 days: No Contact w/Intl Traveler<30days: No Traveled to known affect area: No History of Present Illness HPI 61-year-old male presents to emergency department voluntarily for psychiatric evaluation. Patient states he has been depressed. He was recently kicked out of his place of residence and is now homeless. He tells me he has nowhere to go. He denies suicidal homicidal ideations. He tells Me that he has history of hypertension but is not taking his medication. Denies any acute medical needs at this time. PFSH Past Medical History Cancer: No Cardiovascular Problems: No Diabetes: Yes Patient Takes Glucophage: Yes (METFORMIN ) Diminished Hearing: No Endocrine: Yes Genitourinary: No Hypertension: Yes Immune Disorder: No Musculoskeletal: No Neurologic: No Reproductive: No Respiratory: No Past Surgical History Tonsillectomy: Yes Other Surgery: Yes (tonsillectomy, skin ca rfa) Social History Alcohol Use: Yes (EVERYDAY ) Tobacco Use: No Substance Use: No (MARIJUANA, COCAINE ) Allergies-Medications (Allergen,Severity, Reaction): Coded Allergies: No Known Allergies (Unverified , 06/21/16) Reported Meds & Prescriptions Reported Meds & Active Scripts Active Oxycodone-Acetaminophen 5-325 mg Tab 1-2 Tab PO Q4H PRN Milk of Magnesia Liq (Magnesium Hydroxide) 400 Mg/5 Ml Susp 30 Ml PO HS 30 Days Dok (Docusate Sodium) 100 Mg Cap 100 Mg PO BID 30 Days Flexeril (Cyclobenzaprine HCl) 10 Mg Tab 10 Mg PO TID Diclofenac Sodium DR (Diclofenac Sodium) 75 Mg Tabdr 75 Mg PO BID Reported Aspirin 81 Mg Chew 81 Mg CHEW DAILY Metformin (Metformin HCl) 500 Mg Tab 500 Mg PO BIDPC With meals Lisinopril 10 Mg Tab 10 Mg PO DAILY Review of Systems Except as stated in HPI: all other systems reviewed are Neg Physical Exam Narrative GENERAL: Well-nourished, well-developed male patient, in no acute distress. SKIN: Focused skin assessment warm/dry. HEAD: Normocephalic. EYES: No scleral icterus. No injection or drainage. NECK: Supple, trachea midline. No JVD or lymphadenopathy. CARDIOVASCULAR: Elevated rate and rhythm without murmurs, gallops, or rubs. RESPIRATORY: Breath sounds equal bilaterally. No accessory muscle use. GASTROINTESTINAL: Abdomen soft, non-tender, nondistended. MUSCULOSKELETAL: No cyanosis, or edema. BACK: Nontender without obvious deformity. No CVA tenderness. Data Data Last Documented VS Vital Signs Date Time Temp Pulse Resp B/P (MAP) Pulse Ox O2 Delivery O2 Flow Rate FiO2 05/06/17 02:36 05/05/17 22:23 99.4 102 16 96 Orders Orders Psych Screen (05/06/17 02:03) Ed Discharge Order (05/06/17 02:34) MDM Medical Decision Making Medical Screen Exam Complete: Yes Emergency Medical Condition: Yes Medical Record Reviewed: Yes Differential Diagnosis Mood disorder versus personality disorder versus adjustment reaction disorder versus malingering Narrative Course 51-year-old male presents to the emergency department voluntarily for psychiatric evaluation. Patient appears without distress. His vital signs are stable although he is hypertensive and has not been on his medication. Recheck of his blood pressure is 195/98. Patient is asymptomatic. Psychiatric screen is ordered. Patient does not meet inpatient criteria. He is offered to stay in the [facility] until the morning at which time he can catch the bus to [place]. I have given him resources on homeless shelters. Initially patient is not okay with this plan of care. He tells me that he wants [facility] because he has nowhere to go. I explained to him that that is not how [facility] works. He does not meet incorrect patient criteria and he needs to follow- up outpatient with resources provided to him. He then threatened lawsuit. Patient goes on to the lobby and contacts police who then, and evaluate him in the lobby. I was present and explained to them what was going on. Patient then verbalizes understanding and agrees to sit until morning and utilize outpatient resources appropriately. Diagnosis Primary Impression: Adjustment reaction Qualified Codes: F43.21 - Adjustment disorder with depressed mood Referrals: [facility] (Out patient) [facility] Patient Instructions: Depression (ED), General Instructions Additional Instructions: Follow-up with a primary care provider Seek assistance outpatient with your depression Return immediately with any acute worsening symptoms Med/Other Pt SpecificInfo: No Change to Meds Disposition: 01 DISCHARGE HOME Condition: Stable Elizabeth Nicholson May 06, 2017 02:21
== END 2017-05-06 03:38 | disposition home or self-care (01) ==
LOC: NEPD 22:18
DX: F43.21 Adjustment disorder with depressed mood (principal); Z59.0 Homelessness
CPT/HCPCS: 99283

== ENCOUNTER 2017-11-17 16:01 | Observation (INO) ==
[2017-11-17] MEDS ORDERED: Sod Chloride 0.9% Inj 1,000 ML IV.SIG ONE (16:27)
--- NOTE | 2017-11-17 16:54 | XR ---
EXAM DATE: 11/17/2017 4:48 PM EDT AGE/SEX: 62 years / Male INDICATIONS: Chest pain. CLINICAL DATA: This is the patient's initial encounter. Patient reports that signs and symptoms have been present for 1 day and indicates a pain score of 4/10. MEDICAL/SURGICAL HISTORY: . Diabetes. Hypertension. Umbilical hernia repair. COMPARISON: [facility] [place], CHEST SINGLE AP, 06/24/2016. . FINDINGS: A single AP view of the chest demonstrates the lungs to be symmetrically aerated with a new focal are a of opacity projected over the left upper lobe measuring approximately 3.8 x 2.5 cm. There is no eff usion. The cardiomediastinal contours are unremarkable. Osseous structures are intact. CONCLUSION: New subtle area of patchy opacity projected over the left upper lobe. This is nonspecific and could r epresent an infiltrate or possible mass. Further evaluation with chest CT is recommended. Electronically signed by: Logan Starks MD 11/17/2017 4:53 PM EDT
[2017-11-17 17:01] LABS: Baso % (Auto) 0.4 % (0.0-2.0); Eos # (Auto) 0.1 th/mm3 (0.0-0.4); Eos % (Auto) 1.5 % (0.0-4.0); Hematocrit 46.5 % (39.0-51.0); Hemoglobin 15.5 gm/dL (13.0-17.0); Lymph # (Auto) 2.2 th/mm3 (1.0-4.8); Lymph % (Auto) 27.3 % (9.0-44.0); Mean Corpuscular HGB Conc 33.4 % (32.0-36.0); Mean Corpuscular Hemoglobin 29.3 pg (27.0-34.0); Mean Corpuscular Volume 87.7 fL (80.0-100.0); Mean Platelet Volume 8.2 fL (7.0-11.0); Mono # (Auto) 0.5 th/mm3 (0.0-0.9); Mono % (Auto) 6.5 % (0.0-8.0); Neut # (Auto) 5.3 th/mm3 (1.8-7.7); Neut % (Auto) 64.3 % (16.0-70.0); Platelet Count 257 th/mm3 (150-450); Red Cell Distribution Width 13.5 % (11.6-17.2); White Blood Count 8.2 th/mm3 (4.0-11.0)
--- NOTE | 2017-11-17 17:09 | ED ---
HPI General Chief Complaint: Weakness Stated Complaint: hypertension Time Seen by Provider: 11/17/17 16:20 Source: patient Mode of arrival: ambulatory Limitations: no limitations History of Present Illness HPI Narrative: 62-year-old male with PMH of untreated HTN and DM presents the ED for evaluation of weeks long history of dizziness, worsened when he wakes up. He also complains of some problems with ambulation and coordination. He states "my equilibrium is off." He denies headache, vision changes, chest pain, palpitations, shortness of breath, abdominal pain, nausea, vomiting, changes in bowel habits, dysuria, hematuria, back pain or lower extremity pain. He denies alcohol use use. He endorses occasional marijuana use. States that he has been out of metformin and lisinopril for over a year. He does not currently have a primary care doctor.. Related Data Home Medications Medication Instructions Recorded Confirmed No Known Home Medications 10/28/17 11/17/17 lisinopril See Label Instructions .ROUTE 11/17/17 11/17/17 .COMPLEX metformin See Label Instructions .ROUTE 11/17/17 11/17/17 .COMPLEX Allergies Allergy/AdvReac Type Severity Reaction Status Date / Time bee venom protein (honey bee) Allergy Anaphylaxis Verified 11/17/17 16:32 [Bee sting] peanut Allergy Anaphylaxis Verified 11/17/17 16:32 Review of Systems Except as stated in HPI: all other systems reviewed are negative PMFSH Social History Social History Substance History: No History of Abuse Second Hand Smoke Exposure: No Smoking Status: Never smoker Tobacco Type: Cigarettes How Often Do You Have a Drink Containing Alcohol: Never Recent Travel in [facility] within the Last 8 Weeks: No Recent Out of Country Travel within the Last 8 Weeks: No Immunization History Tetanus Immunization: Unsure Hx Influenza Vaccine This Season: Yes Exam Narrative Exam Narrative: GENERAL: Well-nourished, well-developed, gregarious white male in no acute distress. SKIN: Focused skin assessment warm/dry. Chronic venous stasis skin changes in the bilateral lower extremities. HEAD: Atraumatic. Normocephalic. EYES: Pupils equal and round. No scleral icterus. No injection or drainage. ENT: No nasal bleeding or discharge. Mucous membranes pink and moist. NECK: Trachea midline. No JVD. CARDIOVASCULAR: Regular rate and rhythm. No murmur appreciated. RESPIRATORY: No accessory muscle use. Clear to auscultation. Breath sounds equal bilaterally. GASTROINTESTINAL: Abdomen soft, non-tender, nondistended. Hepatic and splenic margins not palpable. MUSCULOSKELETAL: No obvious deformities. No clubbing. No cyanosis. No edema. NEUROLOGICAL: Awake and alert. No obvious cranial nerve deficits. Motor grossly within normal limits. Normal speech. No difficulties with heel to dominguez testing. PSYCHIATRIC: Appropriate mood and affect; insight and judgment normal. Course Initial Documented Vital Signs Temperature 98.3 F 11/17/17 16:06 Pulse Rate 106 H 11/17/17 16:06 Respiratory Rate 22 11/17/17 16:06 Blood Pressure 159/104 H 11/17/17 16:06 Pulse Oximetry 96 11/17/17 16:06 Last Documented Vital Signs Temperature 98.3 F 11/17/17 16:06 Pulse Rate 80 11/17/17 18:41 Respiratory Rate 20 11/17/17 18:41 Blood Pressure 166/106 H 11/17/17 18:41 Pulse Oximetry 97 11/17/17 18:41 Medical Decision Making BRIGITTE Attestation BRIGITTE supervised visit: Yes Attestation: I, Dr. Patricio, have reviewed the advance practice practitioner's documentation and am in agreement, met with the patient face to face, made the diagnosis, and the medical decision making was done by me. *My assessment and Findings: Patient seen and evaluated with PA, please see PA notes for further details, here complaining of dizziness, ataxia, blood pressure is fairly elevated blood sugars fairly elevated, noncompliant with medications, does not yet have a primary care doctor. Blood sugar is over 500. He was given IV fluids and insulin in the ER. Anion gap is negative. CAT scan did not show any signs of acute intracranial processes. However, patient complains that he feels quite unsteady when he walks. And plan is to admit him as observation, questionable TIA. [facility] Narrative Medical decision making narrative: 62-year-old male with PMH of untreated hypertension and diabetes presents the ED for evaluation of episodic dizziness with accompanying ataxia for the last 4 days. On arrival BP 154/94. Fingerstick blood glucose 500+. IV was established. Patient was administered 0.2 clonidine and 1 L normal saline. Lab work reveals blood glucose of 484. Potassium 4.2. Patient was administered 6 units of insulin IV. I reviewed the patient's record, blood glucose low 300s. Remaining lab work and radiological studies, including CT of the brain unremarkable. On recheck patient's hypertension is persistent. Blood glucose improved to the mid 200s. I discussed the case with Dr. Mueller. She recommends observation admission to rule out CVA. Patient's agreeable to this plan. I spoke with Dr. Morse who agrees to accept the patient to the medicine service. Please see medicine notes for disposition. EKG rate 85, sinus rhythm. SD interval 197, QRS 80, QTc 361 ms. Normal axis. No acute ST changes. Reviewed by Dr. Mueller. Differential Diagnosis Differential Diagnosis: Hypertensive urgency versus hyperglycemia versus DKA versus metabolic derangement versus CVA versus TIA versus other Lab Data Lab results reviewed: Yes I reviewed the patient's lab results. Result diagrams: 11/17/17 16:40 11/17/17 16:40 Lab Results 11/17/17 11/17/17 11/17/17 Range/Units 16:40 16:40 16:40 WBC 8.2 (4.0-11.0) th/mm3 RBC 5.30 (4.50-5.90) mil/mm3 Hgb 15.5 (13.0-17.0) gm/dL Hct 46.5 (39.0-51.0) % MCV 87.7 (80.0-100.0) fL MCH 29.3 (27.0-34.0) pg MCHC 33.4 (32.0-36.0) % RDW 13.5 (11.6-17.2) % Plt Count 257 (150-450) th/mm3 MPV 8.2 (7.0-11.0) fL Neut % (Auto) 64.3 (16.0-70.0) % Lymph % (Auto) 27.3 (9.0-44.0) % [place] % (Auto) 6.5 (0.0-8.0) % Eos % (Auto) 1.5 (0.0-4.0) % Baso % (Auto) 0.4 (0.0-2.0) % Neut # (Auto) 5.3 (1.8-7.7) th/mm3 Lymph # (Auto) 2.2 (1.0-4.8) th/mm3 [place] # (Auto) 0.5 (0.0-0.9) th/mm3 Eos # (Auto) 0.1 (0.0-0.4) th/mm3 Baso # (Auto) 0.0 (0.0-0.2) th/mm3 WBC Differential . Differential Comment Auto diff final PT 9.7 L (9.8-11.6) sec INR 1.0 Ratio Sodium 133 L (136-145) meq/L Potassium 4.2 (3.5-5.1) meq/L Chloride 97 L (98-107) meq/L Carbon Dioxide 25.7 (21.0-32.0) meq/L Anion Gap 10 (5-15) meq/L BUN 25 H (7-18) mg/dL Creatinine 1.60 H (0.60-1.30) mg/dL Estimated GFR 44 L (>89) mL/min Random Glucose 484 H* (74-106) mg/dL Calcium 10.7 H (8.5-10.1) mg/dL Magnesium 1.6 (1.5-2.5) mg/dL Total Bilirubin 0.3 (0.2-1.0) mg/dL AST 18 (15-37) U/L ALT 25 (12-78) U/L Alkaline Phosphatase 103 (45-117) U/L Troponin I Less than 0.02 L (0.02-0.05) ng/mL Total Protein 8.0 (6.4-8.2) g/dL Albumin 3.5 (3.4-5.0) g/dL Beta-Hydroxybutyric Acd 0.19 (0.00-0.39) mmol/L Urine Color (Yellw/Straw) Urine Clarity (Clear) Urine pH (5.0-8.5) Ur Specific [place] (1.002-1.035) Urine Protein (Neg-Trace) mg/dL Urine Glucose (UA) (Negative) mg/dL Urine Ketones (Negative) mg/dL Urine Occult Blood (Negative) Urine Nitrate (Negative) Urine Bilirubin (Negative) Urine Urobilinogen (Less than 2) mg/dL Ur Leukocyte Esterase (Negative) Urine RBC (0-3) /hpf Urine WBC (0-5) /hpf Micro UA Comment Urine Culture Comments Urine Opiates Screen (Neg) Ur Barbiturates Screen (Neg) Ur Amphetamines Screen (Neg) U Benzodiazepines Scrn (Neg) Urine Cocaine Screen (Neg) U Cannabinoids Screen (Neg) Serum Alcohol (0-5) mg/dL 11/17/17 11/17/17 11/17/17 Range/Units 16:40 17:32 18:39 WBC (4.0-11.0) th/mm3 RBC (4.50-5.90) mil/mm3 Hgb (13.0-17.0) gm/dL Hct (39.0-51.0) % MCV (80.0-100.0) fL MCH (27.0-34.0) pg MCHC (32.0-36.0) % RDW (11.6-17.2) % Plt Count (150-450) th/mm3 MPV (7.0-11.0) fL Neut % (Auto) (16.0-70.0) % Lymph % (Auto) (9.0-44.0) % [place] % (Auto) (0.0-8.0) % Eos % (Auto) (0.0-4.0) % Baso % (Auto) (0.0-2.0) % Neut # (Auto) (1.8-7.7) th/mm3 Lymph # (Auto) (1.0-4.8) th/mm3 [place] # (Auto) (0.0-0.9) th/mm3 Eos # (Auto) (0.0-0.4) th/mm3 Baso # (Auto) (0.0-0.2) th/mm3 WBC Differential Differential Comment PT (9.8-11.6) sec INR Ratio Sodium (136-145) meq/L Potassium (3.5-5.1) meq/L Chloride (98-107) meq/L Carbon Dioxide (21.0-32.0) meq/L Anion Gap (5-15) meq/L BUN (7-18) mg/dL Creatinine (0.60-1.30) mg/dL Estimated GFR (>89) mL/min Random Glucose (74-106) mg/dL Calcium (8.5-10.1) mg/dL Magnesium (1.5-2.5) mg/dL Total Bilirubin (0.2-1.0) mg/dL AST (15-37) U/L ALT (12-78) U/L Alkaline Phosphatase (45-117) U/L Troponin I (0.02-0.05) ng/mL Total Protein (6.4-8.2) g/dL Albumin (3.4-5.0) g/dL Beta-Hydroxybutyric Acd (0.00-0.39) mmol/L Urine Color Straw (Yellw/Straw) Urine Clarity Clear (Clear) Urine pH 6.0 (5.0-8.5) Ur Specific [place] 1.016 (1.002-1.035) Urine Protein 100 H (Neg-Trace) mg/dL Urine Glucose (UA) 500 or greater (Negative) mg/dL Urine Ketones Negative (Negative) mg/dL Urine Occult Blood Negative (Negative) Urine Nitrate Negative (Negative) Urine Bilirubin Negative (Negative) Urine Urobilinogen Less than 2 (Less than 2) mg/dL Ur Leukocyte Esterase Negative (Negative) Urine RBC Less than 1 (0-3) /hpf Urine WBC Less than 1 (0-5) /hpf Micro UA Comment Culture not ind Urine Culture Comments Culture not ind Urine Opiates Screen Neg (Neg) Ur Barbiturates Screen Neg (Neg) Ur Amphetamines Screen Neg (Neg) U Benzodiazepines Scrn Neg (Neg) Urine Cocaine Screen Neg (Neg) U Cannabinoids Screen Neg (Neg) Serum Alcohol Less than 3 (0-5) mg/dL Imaging Data Attestation: I personally reviewed and interpreted this imaging study as follows : Radiologist's impression: Chest X-Ray 11/17/17 16:27 CONCLUSION: New subtle area of patchy opacity projected over the left upper lobe. This is nonspecific and could represent an infiltrate or possible mass. Further evaluation with chest CT is recommended. Head CT 11/17/17 16:27 CONCLUSION: 1. No acute hemorrhage, mass or infarction. 2. Stable appearance of ventricular system. 3. Mild to moderate atrophic changes. . Discharge Plan Discharge Disposition Patient Disposition: 30 Still Patient Discharge Details Diagnosis: Ataxia, Hypertension, Hyperglycemia Physicians Team ED Provider: Guy Patricio ED Midlevel Provider: Hui Raya Primary Care Provider: Primary Care Margaux Long Attending Provider: Jose Morse Discharge Interventions Interventions: Vital Signs Last Done: 11/17/17 18:41 Status ED Status: Admitted Observation Patient
[2017-11-17 17:10] LABS: Prothrombin Time 9.7 sec (9.8-11.6)
[2017-11-17 17:29] LABS: Alanine Aminotransferase 25 U/L (12-78); Albumin 3.5 g/dL (3.4-5.0); Alkaline Phosphatase 103 U/L (45-117); Anion Gap 10 meq/L (5-15); Aspartate Aminotransferase 18 U/L (15-37); Beta Hydroxybutyric Acid 0.19 mmol/L (0.00-0.39); Blood Urea Nitrogen 25 mg/dL (7-18); Calcium 10.7 mg/dL (8.5-10.1); Carbon Dioxide 25.7 meq/L (21.0-32.0); Chloride 97 meq/L (98-107); Glomerular Filtration Rate 44 mL/min (>89); Magnesium 1.6 mg/dL (1.5-2.5); Potassium 4.2 meq/L (3.5-5.1); Sodium 133 meq/L (136-145)
[2017-11-17 17:36] LABS: Glucose,Random 484 mg/dL (74-106)
--- NOTE | 2017-11-17 17:53 | CT ---
EXAM DATE: 11/17/2017 5:45 PM EDT AGE/SEX: 62 years / Male INDICATIONS: Dizziness. CLINICAL DATA: This is the patient's initial encounter. Patient reports that signs and symptoms have been present for 1 day and indicates a pain score of 0/10. MEDICAL/SURGICAL HISTORY: Diabetes mellitus type II. Diabetes mellitus type II. Carotid stenosis. None. RADIATION DOSE: 56.35 CTDI (mGy) COMPARISON: [facility] [place] HEAD W/O CONTRAST, 10/28/2017. . TECHNIQUE: CT of the head without contrast. Using automated exposure control and adjustment of the mA and/or kV according to patient size, radiation dose was kept as low as reasonably achievable to ob tain optimal diagnostic quality images. DICOM format image data is available electronically for revi ew and comparison. FINDINGS: Cerebrum: The ventricular system is stable in appearance with stable prominence of the lateral ventr icles. No evidence of midline shift, mass lesion, hemorrhage or acute infarction. No extraaxial flui d collections are seen. Posterior Fossa: The cerebellum and brainstem are intact. The 4th ventricle is midline. The cerebe llopontine angle is unremarkable. Extracranial: The visualized portion of the orbits is intact. Skull: The calvaria is intact. No evidence of skull fracture. CONCLUSION: 1. No acute hemorrhage, mass or infarction. 2. Stable appearance of ventricular system. 3. Mild to moderate atrophic changes. . Electronically signed by: Logan Starks MD 11/17/2017 5:52 PM EDT
[2017-11-17 18:18] LABS: Bilirubin,Urine Negative (Negative); Clarity,Urine Clear (Clear); Color,Urine Straw (Yellw/Straw); Glucose,Urine (UA) 500 or Greater mg/dL (Negative); Leukocyte Esterase,Urine Negative (Negative); Nitrite,Urine Negative (Negative); Specific Gravity,Urine 1.016 (1.002-1.035)
[2017-11-17] MEDS ORDERED: Aspirin 325 MG Tablet PO ONE (18:28)
[2017-11-17] MEDS ORDERED: Haloperidol Inj 5 MG/ML Ampul IV.PUSH PRN (18:57)
[2017-11-17] MEDS ORDERED: LORazepam 1 MG Tablet PO PRN (18:57)
[2017-11-17 19:15] LABS: Amphetamine Screen,Urine Neg (Neg); Barbiturate Screen,Urine Neg (Neg); Cannabinoid Screen,Urine Neg (Neg); Cocaine Screen,Urine Neg (Neg)
[2017-11-17 19:19] LABS: Opiate Screen,Urine Neg (Neg)
[2017-11-17] MEDS ORDERED: Dextrose 50% in Water 50 ML Vial IV.PUSH PRN (19:27)
[2017-11-17] MEDS ORDERED: Bisacodyl 10 MG Supp RECTAL PRN (19:29)
[2017-11-17] MEDS ORDERED: Temazepam 15 MG Capsule PO PRN (19:29)
--- NOTE | 2017-11-17 21:17 | P.HPIM ---
History of Present Illness Primary Care Physician: No Primary Care Physician History of Present Illness: This is a 62-year-old male with a PMH of HTN and DM who presented to the ER with complaints of dizziness and unsteady gait for the last 4 days. Denies injury, trauma or fall. Denies headache, nausea, vomiting or chest pain. Has been off Metformin and Lisinopril for approx 1yr. Notes BP has been 160-170's. On arrival, BP 169/114, HR 106, O2 sat 96% on RA, Afebrile. CBC unremarkable. INR 1.0. Creatinine 1.60, previously 1.29 on 10/28/2017. Troponin negative. BS 484. UA negative. Urine Drug Screen negative. CXR with new patchy opacity left upper lobe, nonspecific, infiltrate versus mass. CT Head w/ no acute hemorrhage, mass or infarct. - Diagnosis (1) Dizziness (2) DM (diabetes mellitus) (3) HTN (hypertension) (4) Renal insufficiency (5) Lung mass Review of Systems All other systems reviewed negative except as stated in HPI [facility] - History History Provided By: Patient - Medical History Medical History: Medical History (Last Reviewed 10/28/17 @ 13:46 by Ney Jang) Diabetes Hypertension Mini stroke - Surgical History Surgical History: Surgical History (Last Reviewed 10/28/17 @ 13:46 by Ney Jang) Hx of tonsillectomy - Tobacco History Second Hand Smoke Exposure: No Smoking Status: Never smoker Tobacco Type: Cigarettes - Alcohol History How Often Do You Have a Drink Containing Alcohol: Never - Substance Use History Substance History: No History of Abuse - Travel History Recent Travel in the [place] Within the Last 8 Weeks: No Recent Travel Out of the Country Within the Last 8 Weeks: No - Immunization History Tetanus Immunization: Unsure Hx Influenza Vaccine This Season: Yes Medications and Allergies Active Medications: Active Medications Acetaminophen (Tylenol) 650 mg PO Q4H PRN PRN Reason: Temp > 100.4 Al Hydroxide/Mg Hydroxide (Milk Of Magnesia Liq) 30 ml PO Q12H PRN PRN Reason: Mild Constipation Bisacodyl (Dulcolax Supp) 10 mg RECTAL DAILY PRN PRN Reason: SEVERE CONSITIPATION Dextrose (D50w Vial) 50 ml IV.PUSH UNSCH PRN PRN Reason: PER HYPOGLYCEMIA PROTOCOL Flumazenil (Romazecon Inj) 0.2 mg IV.PUSH Q1M PRN PRN Reason: OVERSEDATION Glucagon (Glucagon Inj) 1 mg OTHER PRN PRN PRN Reason: for Hypoglycemia Protocol Haloperidol Lactate (Haldol Inj) 1 mg IV.PUSH Q15M PRN PRN Reason: for severe agitation Sodium Chloride (Ns Inj) 1,000 mls @ 100 mls/hr IV.CONT .Q10H RODNEY Insulin Aspart (Novolog Insulin Correctional Sugar Inj) 0 unit SQ ACHS RODNEY; Protocol Lactulose (Lactulose Liq) 30 ml PO DAILY PRN PRN Reason: SEVERE CONSITIPATION Lorazepam (Ativan) 1 mg PO Q4H PRN PRN Reason: for CIWA 8-10 Lorazepam (Ativan) 2 mg PO Q2H PRN PRN Reason: for CIWA 11-14 Lorazepam (Ativan Inj) 2 mg IV.PUSH Q2H PRN PRN Reason: for CIWA 11-14 Lorazepam (Ativan Inj) 2 mg IV.PUSH Q1H PRN PRN Reason: for CIWA 15-20 Lorazepam (Ativan Inj) 1 mg IV.PUSH Q4H PRN PRN Reason: for CIWA 8-10 Lorazepam (Ativan Inj) 2 mg IV.PUSH Q15M PRN PRN Reason: for CIWA > 20 Metoprolol Tartrate (Lopressor) 25 mg PO BID [facility] Ondansetron HCl (Zofran Odt) 4 mg PO Q6H PRN PRN Reason: NAUSEA OR VOMITING Senna/Docusate Sodium (Rianna-Colace) 1 tab PO BID [facility] Sennosides (Senokot) 17.2 mg PO Q12H PRN PRN Reason: Moderate Constipation Sodium Chloride (Ns Flush) 2 ml IV.FLUSH PRN PRN PRN Reason: FLUSH AFTER USING IV ACCESS Sodium Chloride (Ns Flush) 2 ml IV.FLUSH BID RODNEY Sodium Chloride (Ns Flush) 2 ml IV.FLUSH PRN PRN PRN Reason: FLUSH AFTER USING IV ACCESS Temazepam (Restoril) 15 mg PO HS PRN PRN Reason: INSOMNIA Allergies Allergy/AdvReac Type Severity Reaction Status Date / Time bee venom protein (honey bee) Allergy Anaphylaxis Verified 11/17/17 16:32 [Bee sting] peanut Allergy Anaphylaxis Verified 11/17/17 16:32 Home Medications Medication Instructions Recorded Confirmed Type No Known Home Medications 10/28/17 11/17/17 History lisinopril See Label Instructions .ROUTE 11/17/17 11/17/17 History .COMPLEX metformin See Label Instructions .ROUTE 11/17/17 11/17/17 History .COMPLEX Exam Vital signs: Vital Signs 11/17/17 16:06 11/17/17 16:43 11/17/17 16:45 Temperature 98.3 F Pulse Rate 106 H 88 Respiratory Rate 22 19 Blood Pressure 159/104 H 169/114 H Pulse Oximetry 96 96 96 11/17/17 18:00 11/17/17 18:41 11/17/17 20:00 Temperature 97.9 F Pulse Rate 102 H 80 69 Respiratory Rate 19 20 18 Blood Pressure 163/112 H 166/106 H 140/81 Pulse Oximetry 96 97 97 Intake & Output 11/17/17 11/17/17 11/18/17 06:59 18:59 06:59 Weight 95.254 kg Narrative: PE: GENERAL: Pleasant middle-aged white male in no acute distress. HEENT: PERRLA, EOMI. No scleral icterus or conjunctival pallor. No lid lag or facial droop. CARDIOVASCULAR: Regular rate and rhythm. No obvious murmurs to auscultation. No chest tenderness to palpation. RESPIRATORY: No obvious rhonchi or wheezing. Clear to auscultation. Breath sounds equal bilaterally. GASTROINTESTINAL: Abdomen soft, non-tender, nondistended. BS normal. MUSCULOSKELETAL: Extremities without clubbing, cyanosis, or edema. No obvious deformities. NEUROLOGICAL: Awake, alert and oriented x4. No focal neurologic deficits. Moving both upper and lower extremities spontaneously. Results - Labs CBC & Chem 7: 11/17/17 16:40 11/17/17 16:40 Labs: Short CBC 11/17/17 Range/Units 16:40 WBC 8.2 (4.0-11.0) th/mm3 Hgb 15.5 (13.0-17.0) gm/dL Hct 46.5 (39.0-51.0) % Plt Count 257 (150-450) th/mm3 BMP 11/17/17 16:40 Sodium 133 L Potassium 4.2 Chloride 97 L Carbon Dioxide 25.7 BUN 25 H Creatinine 1.60 H Calcium 10.7 H Cardiac Enzymes 11/17/17 Range/Units 16:40 Troponin I Less than 0.02 L (0.02-0.05) ng/mL Liver Function 11/17/17 Range/Units 16:40 Total Bilirubin 0.3 (0.2-1.0) mg/dL AST 18 (15-37) U/L ALT 25 (12-78) U/L Alkaline Phosphatase 103 (45-117) U/L Albumin 3.5 (3.4-5.0) g/dL Urine 11/17/17 Range/Units 17:32 Urine Color Straw (Yellw/Straw) Urine Clarity Clear (Clear) Urine pH 6.0 (5.0-8.5) Ur Specific [place] 1.016 (1.002-1.035) Urine Protein 100 H (Neg-Trace) mg/dL Urine Glucose (UA) 500 or greater (Negative) mg/dL - Imaging Impressions Chest X-Ray 11/17/17 16:27 CONCLUSION: New subtle area of patchy opacity projected over the left upper lobe. This is nonspecific and could represent an infiltrate or possible mass. Further evaluation with chest CT is recommended. Head CT 11/17/17 16:27 CONCLUSION: 1. No acute hemorrhage, mass or infarction. 2. Stable appearance of ventricular system. 3. Mild to moderate atrophic changes. . Caprini VTE Risk Assessment Caprini VTE Risk Assessment: No/Low Risk (score <= 1) Caprini Risk Assessment Model: Point Value = 1 Point Value = 2 Point Value = 3 Point Value = 5 Age 41-60 Minor surgery BMI > 25 kg/m2 Swollen legs Varicose veins or History of unexplained or recurrent spontaneous Oral contraceptives or hormone replacement Sepsis (< 1 month) Serious lung disease, including pneumonia (< 1 month) Abnormal pulmonary function Acute myocardial infarction Congestive heart failure (< 1 month) History of inflammatory bowel disease Medical patient at bed rest Age 61-74 Arthroscopic surgery Major open surgery (> 45 min) Laparoscopic surgery (> 45 min) Malignancy Confined to bed (> 72 hours) Immobilizing plaster cast Central venous access Age >= 75 History of VTE Family history of VTE Factor V Leiden Prothrombin [id number] Lupus anticoagulant Anticardiolipin antibodies Elevated serum homocysteine Heparin-induced thrombocytopenia Other congenital or acquired thrombophilia Stroke (< 1 month) Elective arthroplasty Hip, pelvis, or leg fracture Acute spinal cord injury (< 1 month) Prophylaxis Regimen: Total Risk Factor Score Risk Level Prophylaxis Regimen 0-1 Low Early ambulation 2 Moderate Order ONE of the following: *Sequential Compression Device (SCD) *Heparin 5000 units SQ BID 3-4 Higher Order ONE of the following medications: *Heparin 5000 units SQ TID *Enoxaparin/Lovenox 40 mg SQ daily (WT < 150 kg, CrCl > 30 mL/min) *Enoxaparin/Lovenox 30 mg SQ daily (WT < 150 kg, CrCl > 10-29 mL/min) *Enoxaparin/Lovenox 30 mg SQ BID (WT < 150 kg, CrCl > 30 mL/min) AND/OR *Sequential Compression Device (SCD) 5 or more Highest Order ONE of the following medications: *Heparin 5000 units SQ TID (Preferred with Epidurals) *Enoxaparin/Lovenox 40 mg SQ daily (WT < 150 kg, CrCl > 30 mL/min) *Enoxaparin/Lovenox 30 mg SQ daily (WT < 150 kg, CrCl > 10-29 mL/min) *Enoxaparin/Lovenox 30 mg SQ BID (WT < 150 kg, CrCl > 30 mL/min) AND *Sequential Compression Device (SCD) Assessment and Plan - Assessment (1) Dizziness Code(s): R42 - Dizziness and giddiness Status: Acute (2) DM (diabetes mellitus) Code(s): E11.9 - Type 2 diabetes mellitus without complications Status: Acute (3) HTN (hypertension) Code(s): I10 - Essential (primary) hypertension Status: Acute (4) Renal insufficiency Code(s): N28.9 - Disorder of kidney and ureter, unspecified Status: Acute (5) Lung mass Code(s): R91.8 - Other nonspecific abnormal finding of lung field Status: Acute - Plan A/P: 1. Dizziness: c/o dizziness w/ associated gait instability x4 days, CT Head w / no acute findings, images reviewed. Non-compliant w/ meds, uncontrolled DM/ HTN which may be contributing. Check Hgb A1c, TSH, B12/Folate. PT for eval/ tx. Consult Neurology as needed. 2. HTN: Uncontrolled. Off BP meds x1yr, BP 160-170's, hold Lisinopril in light of DUDLEY, start Metoprolol bid, monitor BP closely. 3. Lung Mass: CXR w/ questionable lung mass SONIA, will check CT Chest to eval for possible infection vs mass. 4. DUDLEY: Creatinine 1.60, previously 1.29 on 10/28/17, monitor I/O, IVF for hydration, U/a negative. 5. DM: Uncontrolled, off Metformin x1yr, will hold in light of DUDLEY and recent contrast from CT. Check Hgb A1c, sliding scale w/ Accu-cheks. 6. DVT Prophylaxis: SCD/Teds 7. Social work for d/c planning as needed 8. Case discussed w/ ER physician at length, labs/records/imaging reviewed by me.
[2017-11-17] MEDS: Metoprolol Tartrate 25 MG Tablet PO SCH (21:45)
[2017-11-17] MEDS: Senna/Docusate Sodium 8.6/50 MG Tablet PO SCH (21:45)
[2017-11-17] MEDS: Sod Chloride 0.9% Inj 1,000 ML IV.CONT SCH (21:46)
[2017-11-17] MEDS: Insulin NovoLOG Aspart Correctional Sugar Inj SQ SCH (21:49)
--- NOTE | 2017-11-17 22:14 | CT ---
EXAM DATE: 11/17/2017 8:19 PM EDT AGE/SEX: 62 years / Male INDICATIONS: Evaluate for mass. CLINICAL DATA: This is the patient's initial encounter. Patient reports that signs and symptoms have been present for 1 day and indicates a pain score of 0/10. MEDICAL/SURGICAL HISTORY: Diabetes. Hypertension. Mini stroke. Tonsillectomy. RADIATION DOSE: 17.52 CTDI (mGy) COMPARISON: [facility], CHEST 1V SINGLE AP, 11/17/2017. . TECHNIQUE: Multiple contiguous axial images were obtained through the chest during bolus infusion of 50 ml Visipaque 320 (iodixanol) nonionic water-soluble contrast as a single exam dose. Images wer e obtained in suspended respiration using multiple row detector helical technique. Using automated e xposure control and adjustment of the mA and/or kV according to patient size, radiation dose was kept as low as reasonably achievable to obtain optimal diagnostic quality images. DICOM format image epi a is available electronically for review and comparison. FINDINGS: Lungs: The lungs are symmetrically aerated. No infiltrates or nodular densities are seen. Mediastinum: There is good visualization of the great vessels of the middle mediastinum. No evidenc e of mediastinal or hilar adenopathy/mass. Coronary artery calcifications are present. Pleurae: No evidence of focal thickening or pleural effusion. Axillae: Unremarkable. Bony Structures: Spurs are seen in the thoracic spine. There are old healed left rib fractures. Ther e is prominent hypertrophic change at the first costochondral junction regions especially on the left . This likely accounts for the area density seen on the recent chest x-ray. Miscellaneous: The examination was extended to include the upper abdomen, and both adrenal glands ar e normal in size and configuration. There appears to be minimal ascites around the posterior aspect o f the spleen. CONCLUSION: 1. No lung mass is seen. The focal area of density seen on the chest x-ray is likely related to hype rtrophic change at the first costochondral junction on the left. 2. Minimal fluid seen around the spleen. Electronically signed by: Emilio Barreto MD 11/17/2017 10:12 PM EDT
[2017-11-18] MEDS: Sod Chloride 0.9% Inj 1,000 ML IV.CONT SCH ×2 (05:18→15:18)
[2017-11-18] MEDS: Insulin NovoLOG Aspart Correctional Sugar Inj SQ SCH ×4 (08:02→20:41)
[2017-11-18 08:19] LABS: Baso % (Auto) 0.2 % (0.0-2.0); Eos # (Auto) 0.1 th/mm3 (0.0-0.4); Eos % (Auto) 2.3 % (0.0-4.0); Hematocrit 38.5 % (39.0-51.0); Hemoglobin 13.2 gm/dL (13.0-17.0); Lymph # (Auto) 1.9 th/mm3 (1.0-4.8); Lymph % (Auto) 33.4 % (9.0-44.0); Mean Corpuscular HGB Conc 34.4 % (32.0-36.0); Mean Corpuscular Hemoglobin 30.3 pg (27.0-34.0); Mean Corpuscular Volume 88.2 fL (80.0-100.0); Mono # (Auto) 0.4 th/mm3 (0.0-0.9); Mono % (Auto) 6.5 % (0.0-8.0); Neut # (Auto) 3.2 th/mm3 (1.8-7.7); Neut % (Auto) 57.6 % (16.0-70.0); Platelet Count 190 th/mm3 (150-450); Red Blood Count 4.37 mil/mm3 (4.50-5.90); Red Cell Distribution Width 13.6 % (11.6-17.2); White Blood Count 5.6 th/mm3 (4.0-11.0)
[2017-11-18 08:58] LABS: Alanine Aminotransferase 18 U/L (12-78); Albumin 2.5 g/dL (3.4-5.0); Anion Gap 7 meq/L (5-15); Aspartate Aminotransferase 12 U/L (15-37); Blood Urea Nitrogen 22 mg/dL (7-18); Calcium 8.4 mg/dL (8.5-10.1); Chloride 107 meq/L (98-107); Glomerular Filtration Rate 69 mL/min (>89); Glucose,Random 221 mg/dL (74-106); Potassium 3.5 meq/L (3.5-5.1); Sodium 138 meq/L (136-145)
[2017-11-18 09:40] LABS: Alkaline Phosphatase 53 U/L (45-117); Total Protein 5.8 g/dL (6.4-8.2); Vitamin B12 360 pg/mL (193-986)
[2017-11-18] MEDS: Senna/Docusate Sodium 8.6/50 MG Tablet PO SCH ×2 (10:06→20:40)
[2017-11-18] MEDS: Metoprolol Tartrate 25 MG Tablet PO SCH ×2 (10:06→20:40)
[2017-11-18] MEDS: Lisinopril 20 MG Tablet PO SCH (10:06)
[2017-11-18 10:46] LABS: Hemoglobin A1c 11.2 % (4.3-6.0)
--- NOTE | 2017-11-18 13:23 | P.PN ---
Subjective Interval history: Follow-up of HTN, the, dizziness, unsteady gait. Patient seen and examined today sitting in a chair. As per physical therapy patient is recommended to go to rehab as he has extreme weakness bilateral lower extremity. 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 He also rambles on how to get all those illicit drugs here in [facility]. He continues to complain of weakness, dizziness states he was started on medication for vertigo. States he is also on medication lisinopril and was started recently also with metformin. States that it was recent because he never found a PCP to follow him before but now he has a scheduled appointment at [facility] primary care in [facility]. Denies pain and discomfort. Denies SOB / dyspnea. Denies chest pain, palpitations, headaches. Denies fevers, chills, n /v/d. Denies hematuria, dysuria. Physical Exam Vital signs: Vital Signs 11/17/17 16:06 11/17/17 16:43 11/17/17 16:45 Temperature 98.3 F Pulse Rate 106 H 88 Respiratory Rate 22 19 Blood Pressure 159/104 H 169/114 H Pulse Oximetry 96 96 96 11/17/17 18:00 11/17/17 18:41 11/17/17 20:00 Temperature 97.9 F Pulse Rate 102 H 80 68 Respiratory Rate 19 20 18 Blood Pressure 163/112 H 166/106 H 140/81 Pulse Oximetry 96 97 97 11/17/17 23:24 11/18/17 00:00 11/18/17 03:43 Temperature 98.6 F 98.3 F Pulse Rate 61 60 65 Respiratory Rate 16 18 Blood Pressure 101/66 130/79 Pulse Oximetry 96 98 11/18/17 04:00 11/18/17 07:42 11/18/17 11:21 Temperature 98.6 F 98.4 F Pulse Rate 60 64 61 Respiratory Rate 20 20 Blood Pressure 163/96 H 149/82 H Pulse Oximetry 97 97 Intake & Output 11/17/17 11/18/17 11/18/17 18:59 06:59 18:59 Intake Total 1000 / 1000 Output Total 600 / 600 Balance 400 / 400 Weight 95.254 kg Intake: IV 1000 / 1000 NS Inj 1,000 ML @ 100 mls/hr IV 1000 / 1000 .CONT .Q10H RODNEY Rx#:[id number] Output: Urine 600 / 600 Narrative: GENERAL: This is a well-nourished, well-developed patient, in no apparent distress. SKIN: Warm and dry HEENT: Normocephalic. Pupils equal round and reactive. Nose without bleeding. Airway patent. NECK: Trachea midline. No JVD. Supple. CARDIOVASCULAR: Regular rate and rhythm without murmurs, gallops, or rubs. RESPIRATORY: Clear to auscultation. Breath sounds equal bilaterally. No wheezes , rales, or rhonchi. GASTROINTESTINAL: Abdomen soft, non-tender, nondistended. Bowel Sounds normoactive x4. MUSCULOSKELETAL: Extremities without clubbing, cyanosis, or edema. NEUROLOGICAL: Awake and alert. Oriented to time, place, person. No focal neuro deficit. Moves all extremities. Normal speech. Results - Labs CBC & Chem 7: 11/18/17 07:47 11/18/17 07:47 Laboratory Results - last 24 hr 11/17/17 11/17/17 11/17/17 16:40 16:40 16:40 WBC 8.2 RBC 5.30 Hgb 15.5 Hct 46.5 MCV 87.7 MCH 29.3 MCHC 33.4 RDW 13.5 Plt Count 257 MPV 8.2 Neut % (Auto) 64.3 Lymph % (Auto) 27.3 Ida % (Auto) 6.5 Eos % (Auto) 1.5 Baso % (Auto) 0.4 Neut # (Auto) 5.3 Lymph # (Auto) 2.2 [place] # (Auto) 0.5 Eos # (Auto) 0.1 Baso # (Auto) 0.0 WBC Differential . Differential Comment Auto diff final PT 9.7 L INR 1.0 Sodium 133 L Potassium 4.2 Chloride 97 L Carbon Dioxide 25.7 Anion Gap 10 BUN 25 H Creatinine 1.60 H Estimated GFR 44 L POC Glucose Random Glucose 484 H* Hemoglobin A1c Calcium 10.7 H Magnesium 1.6 Total Bilirubin 0.3 AST 18 ALT 25 Alkaline Phosphatase 103 Troponin I Less than 0.02 L Total Protein 8.0 Albumin 3.5 Vitamin B12 Folate Beta-Hydroxybutyric Acd 0.19 TSH Urine Color Urine Clarity Urine pH Ur Specific [place] Urine Protein Urine Glucose (UA) Urine Ketones Urine Occult Blood Urine Nitrate Urine Bilirubin Urine Urobilinogen Ur Leukocyte Esterase Urine RBC Urine WBC Micro UA Comment Urine Culture Comments Urine Opiates Screen Ur Barbiturates Screen Ur Amphetamines Screen U Benzodiazepines Scrn Urine Cocaine Screen U Cannabinoids Screen Serum Alcohol 11/17/17 11/17/17 11/17/17 16:40 17:32 18:39 WBC RBC Hgb Hct MCV MCH MCHC RDW Plt Count MPV Neut % (Auto) Lymph % (Auto) [place] % (Auto) Eos % (Auto) Baso % (Auto) Neut # (Auto) Lymph # (Auto) [place] # (Auto) Eos # (Auto) Baso # (Auto) WBC Differential Differential Comment PT INR Sodium Potassium Chloride Carbon Dioxide Anion Gap BUN Creatinine Estimated GFR POC Glucose Random Glucose Hemoglobin A1c Calcium Magnesium Total Bilirubin AST ALT Alkaline Phosphatase Troponin I Total Protein Albumin Vitamin B12 Folate Beta-Hydroxybutyric Acd TSH Urine Color Straw Urine Clarity Clear Urine pH 6.0 Ur Specific [place] 1.016 Urine Protein 100 H Urine Glucose (UA) 500 or greater Urine Ketones Negative Urine Occult Blood Negative Urine Nitrate Negative Urine Bilirubin Negative Urine Urobilinogen Less than 2 Ur Leukocyte Esterase Negative Urine RBC Less than 1 Urine WBC Less than 1 Micro UA Comment Culture not ind Urine Culture Comments Culture not ind Urine Opiates Screen Neg Ur Barbiturates Screen Neg Ur Amphetamines Screen Neg U Benzodiazepines Scrn Neg Urine Cocaine Screen Neg U Cannabinoids Screen Neg Serum Alcohol Less than 3 11/18/17 11/18/17 11/18/17 07:47 07:47 07:47 WBC 5.6 RBC 4.37 L Hgb 13.2 D Hct 38.5 L MCV 88.2 MCH 30.3 MCHC 34.4 RDW 13.6 Plt Count 190 MPV 8.0 Neut % (Auto) 57.6 Lymph % (Auto) 33.4 [place] % (Auto) 6.5 Eos % (Auto) 2.3 Baso % (Auto) 0.2 Neut # (Auto) 3.2 Lymph # (Auto) 1.9 [place] # (Auto) 0.4 Eos # (Auto) 0.1 Baso # (Auto) 0.0 WBC Differential . Differential Comment Auto diff final PT INR Sodium 138 Potassium 3.5 Chloride 107 D Carbon Dioxide 24.0 Anion Gap 7 BUN 22 H Creatinine 1.08 Estimated GFR 69 L POC Glucose Random Glucose 221 H D Hemoglobin A1c 11.2 H Calcium 8.4 L D Magnesium Total Bilirubin 0.3 AST 12 L ALT 18 Alkaline Phosphatase 53 Troponin I Total Protein 5.8 L D Albumin 2.5 L D Vitamin B12 360 Folate Greater than 20.0 H Beta-Hydroxybutyric Acd TSH 1.710 Urine Color Urine Clarity Urine pH Ur Specific [place] Urine Protein Urine Glucose (UA) Urine Ketones Urine Occult Blood Urine Nitrate Urine Bilirubin Urine Urobilinogen Ur Leukocyte Esterase Urine RBC Urine WBC Micro UA Comment Urine Culture Comments Urine Opiates Screen Ur Barbiturates Screen Ur Amphetamines Screen U Benzodiazepines Scrn Urine Cocaine Screen U Cannabinoids Screen Serum Alcohol 11/18/17 11/18/17 07:56 12:49 WBC RBC Hgb Hct MCV MCH MCHC RDW Plt Count MPV Neut % (Auto) Lymph % (Auto) [place] % (Auto) Eos % (Auto) Baso % (Auto) Neut # (Auto) Lymph # (Auto) [place] # (Auto) Eos # (Auto) Baso # (Auto) WBC Differential Differential Comment PT INR Sodium Potassium Chloride Carbon Dioxide Anion Gap BUN Creatinine Estimated GFR POC Glucose 233 H 199 H Random Glucose Hemoglobin A1c Calcium Magnesium Total Bilirubin AST ALT Alkaline Phosphatase Troponin I Total Protein Albumin Vitamin B12 Folate Beta-Hydroxybutyric Acd TSH Urine Color Urine Clarity Urine pH Ur Specific [place] Urine Protein Urine Glucose (UA) Urine Ketones Urine Occult Blood Urine Nitrate Urine Bilirubin Urine Urobilinogen Ur Leukocyte Esterase Urine RBC Urine WBC Micro UA Comment Urine Culture Comments Urine Opiates Screen Ur Barbiturates Screen Ur Amphetamines Screen U Benzodiazepines Scrn Urine Cocaine Screen U Cannabinoids Screen Serum Alcohol - Imaging Impressions Chest CT 11/17/17 00:00 CONCLUSION: 1. No lung mass is seen. The focal area of density seen on the chest x-ray is likely related to hypertrophic change at the first costochondral junction on the left. 2. Minimal fluid seen around the spleen. Chest X-Ray 11/17/17 16:27 CONCLUSION: New subtle area of patchy opacity projected over the left upper lobe. This is nonspecific and could represent an infiltrate or possible mass. Further evaluation with chest CT is recommended. Head CT 11/17/17 16:27 CONCLUSION: 1. No acute hemorrhage, mass or infarction. 2. Stable appearance of ventricular system. 3. Mild to moderate atrophic changes. . Assessment and Plan - Assessment (1) Dizziness Code(s): R42 - Dizziness and giddiness Status: Acute (2) DM (diabetes mellitus) Code(s): E11.9 - Type 2 diabetes mellitus without complications Status: Acute (3) HTN (hypertension) Code(s): I10 - Essential (primary) hypertension Status: Acute (4) Renal insufficiency Code(s): N28.9 - Disorder of kidney and ureter, unspecified Status: Acute (5) Lung mass Code(s): R91.8 - Other nonspecific abnormal finding of lung field Status: Acute - Plan 62-year-old male with a PMH of HTN and DM who presented to the ER with complaints of dizziness and unsteady gait for the last 4 days Dizziness: c/o dizziness w/ associated gait instability x4 days -CT Head w/ no acute findings -Non-compliant w/ meds, uncontrolled DM/HTN which may be contributing. -Hgb A1c 11.2, TSH 1.71 (WNL), B12 360, Folate >20. -PT for eval/tx, recommends rehab. CM notified -Consult Neurology as needed. -Check orthostatic BP. Start meclizine HTN: Uncontrolled. -Off BP meds x1yr, BP 160-170's -Restart Lisinopril, metoprolol BID -monitor BP closely. Lung Mass -CXR w/ questionable lung mass SONIA -CT Chest no lung mass. The focal air density seen on chest x-ray is likely related to hypertrophic changes at the first costochondral junction of the left. Minimal fluid seen around the spleen. DUDLEY: Creatinine 1.60, previously 1.29 on 10/28/17 -monitor I/O, IVF for hydration, U/a negative. -Repeat 1.08 DM: Uncontrolled, off Metformin x1yr -Recent CT contract cont metformin hold -Sliding scale w/ Accu-checks. -Hemoglobin A1c 11.2. Start Levemir 10 units twice daily. DVT Prophylaxis: SCD/Teds Case management consulted for rehab placement. Code Status: Full Code Discussed Condition With: Patient, nursing Discharge Planning: DC to rehab when placement is made
--- NOTE | 2017-11-18 14:42 | ECG ---
Date Performed: 11/17/2017 Time Performed: 17:16:33 PTAGE: 62 years EKG: Sinus rhythm POSSIBLE RIGHT VENTRICULAR CONDUCTION DELAY Since previous tracing, no significant change noted [facility] ECG PREVIOUS TRACING : 10/28/2017 13.50 DOCTOR: Mayo Louie Interpretating Date/Time 11/18/2017 14:41:06
[2017-11-18] MEDS: Insulin Detemir Inj 1,000 UNIT/10 ML Vial SQ SCH (20:41)
[2017-11-19] MEDS: Sod Chloride 0.9% Inj 1,000 ML IV.CONT SCH ×2 (02:17→16:45)
[2017-11-19] MEDS: Insulin NovoLOG Aspart Correctional Sugar Inj SQ SCH ×4 (08:09→22:38)
[2017-11-19] MEDS: Lisinopril 20 MG Tablet PO SCH (09:39)
[2017-11-19] MEDS: Metoprolol Tartrate 25 MG Tablet PO SCH ×2 (09:39→20:49)
[2017-11-19] MEDS: Insulin Detemir Inj 1,000 UNIT/10 ML Vial SQ SCH ×2 (09:39→22:37)
[2017-11-19] MEDS: Senna/Docusate Sodium 8.6/50 MG Tablet PO SCH ×2 (09:39→20:52)
--- NOTE | 2017-11-19 11:09 | P.PN ---
Subjective Interval history: Follow-up of HTN, dizziness, unsteady gait. Patient seen and examined today. Reports he is doing okay. Continues to be unsteady. Denies pain and discomfort. Denies SOB/ dyspnea. Denies chest pain, palpitations, headaches, dizziness. Denies fevers, chills, n/v/d. Denies dysuria. Physical Exam Vital signs: Vital Signs 11/18/17 11:21 11/18/17 16:00 11/18/17 19:13 Temperature 98.4 F 97.9 F 98.1 F Pulse Rate 61 68 74 Respiratory Rate 20 20 20 Blood Pressure 149/82 H 128/75 121/73 Pulse Oximetry 97 97 97 11/18/17 22:53 11/19/17 03:45 11/19/17 08:00 Temperature 98.2 F 97.7 F 98.5 F Pulse Rate 69 67 66 Respiratory Rate 18 18 18 Blood Pressure 152/92 H 158/97 H 172/100 H Pulse Oximetry 95 94 L 96 Intake & Output 11/18/17 11/19/17 11/19/17 18:59 06:59 18:59 Intake Total 1000 / 1000 1000 / 1000 Output Total 2200 / 2200 Balance 1000 / 1000 -1200 / -1200 Intake: IV 1000 / 1000 1000 / 1000 NS Inj 1,000 ML @ 100 mls/hr IV 1000 / 1000 1000 / 1000 .CONT .Q10H RODNEY Rx#:[id number] Output: Urine 2200 / 2200 Other: # Voids 3 Narrative: GENERAL: This is a well-nourished, well-developed patient, in no apparent distress. SKIN: Warm and dry HEENT: Normocephalic. Pupils equal round and reactive. Nose without bleeding. Airway patent. NECK: Trachea midline. No JVD. Supple. CARDIOVASCULAR: Regular rate and rhythm without murmurs, gallops, or rubs. RESPIRATORY: Clear to auscultation. Breath sounds equal bilaterally. No wheezes , rales, or rhonchi. GASTROINTESTINAL: Abdomen soft, non-tender, nondistended. Bowel Sounds normoactive x4. MUSCULOSKELETAL: Extremities without clubbing, cyanosis, or edema. NEUROLOGICAL: Awake and alert. Oriented to time, place, person. No focal neuro deficit. Moves all extremities. Normal speech. Results - Labs CBC & Chem 7: 11/18/17 07:47 11/18/17 07:47 Laboratory Results - last 24 hr 11/18/17 11/18/17 11/19/17 12:49 17:07 08:01 POC Glucose 199 H 177 H 145 H - Procedures None Assessment and Plan - Assessment (1) Dizziness Code(s): R42 - Dizziness and giddiness Status: Acute (2) DM (diabetes mellitus) Code(s): E11.9 - Type 2 diabetes mellitus without complications Status: Acute (3) HTN (hypertension) Code(s): I10 - Essential (primary) hypertension Status: Acute (4) Renal insufficiency Code(s): N28.9 - Disorder of kidney and ureter, unspecified Status: Acute (5) Lung mass Code(s): R91.8 - Other nonspecific abnormal finding of lung field Status: Acute - Plan 62-year-old male with a PMH of HTN and DM who presented to the ER with complaints of dizziness and unsteady gait for the last 4 days Dizziness: c/o dizziness w/ associated gait instability x4 days -CT Head w/ no acute findings -Non-compliant w/ meds, uncontrolled DM/HTN which may be contributing. -Hgb A1c 11.2, TSH 1.71 (WNL), B12 360, Folate >20. -PT for eval/tx, recommends rehab. CM notified -Consult Neurology as needed. -Check orthostatic BP. Start meclizine HTN: Uncontrolled. -Off BP meds x1yr -Restart Lisinopril, metoprolol BID, -monitor BP. -Adjust meds as needed Lung Mass -CXR w/ questionable lung mass SONIA -CT Chest no lung mass. The focal air density seen on chest x-ray is likely related to hypertrophic changes at the first costochondral junction of the left. Minimal fluid seen around the spleen. DUDLEY, Creatinine 1.60, previously 1.29 on 10/28/17 -monitor I/O, IVF for hydration, U/a negative. -Repeat 1.08 DM: Uncontrolled, off Metformin x1yr -Recent CT contract cont metformin hold -Sliding scale w/ Accu-checks. -Hemoglobin A1c 11.2. Levemir 10 units twice daily. -Monitor BG DVT Prophylaxis: SCD/Teds Case management consulted for rehab placement. Code Status: Full Code Discussed Condition With: Patient, nursing Discharge Planning: DC to rehab when placement is made (2) DM (diabetes mellitus) Qualifiers: Diabetes mellitus type: type 2
[2017-11-19] MEDS: Acetaminophen 325 MG Tablet PO PRN (22:46)
[2017-11-20] MEDS: Sod Chloride 0.9% Inj 1,000 ML IV.CONT SCH (02:19)
[2017-11-20] MEDS: Acetaminophen 325 MG Tablet PO PRN ×2 (04:55→21:45)
[2017-11-20 06:26] LABS: Baso % (Auto) 0.4 % (0.0-2.0); Eos # (Auto) 0.2 th/mm3 (0.0-0.4); Eos % (Auto) 2.4 % (0.0-4.0); Hematocrit 41.6 % (39.0-51.0); Hemoglobin 14.2 gm/dL (13.0-17.0); Lymph # (Auto) 2.2 th/mm3 (1.0-4.8); Lymph % (Auto) 34.4 % (9.0-44.0); Mean Corpuscular HGB Conc 34.1 % (32.0-36.0); Mean Corpuscular Hemoglobin 29.8 pg (27.0-34.0); Mean Corpuscular Volume 87.4 fL (80.0-100.0); Mean Platelet Volume 8.1 fL (7.0-11.0); Mono # (Auto) 0.5 th/mm3 (0.0-0.9); Neut # (Auto) 3.6 th/mm3 (1.8-7.7); Neut % (Auto) 55.8 % (16.0-70.0); Platelet Count 191 th/mm3 (150-450); Red Blood Count 4.75 mil/mm3 (4.50-5.90); Red Cell Distribution Width 13.5 % (11.6-17.2); White Blood Count 6.5 th/mm3 (4.0-11.0)
[2017-11-20 06:58] LABS: Calcium 8.4 mg/dL (8.5-10.1); Potassium 3.6 meq/L (3.5-5.1)
[2017-11-20] MEDS: Lisinopril 20 MG Tablet PO SCH (08:48)
[2017-11-20] MEDS: Metoprolol Tartrate 25 MG Tablet PO SCH (08:48)
[2017-11-20] MEDS: Insulin Detemir Inj 1,000 UNIT/10 ML Vial SQ SCH ×2 (08:48→21:46)
[2017-11-20] MEDS: Insulin NovoLOG Aspart Correctional Sugar Inj SQ SCH ×4 (08:49→21:47)
[2017-11-20] MEDS: Senna/Docusate Sodium 8.6/50 MG Tablet PO SCH ×2 (08:50→21:45)
--- NOTE | 2017-11-20 10:01 | P.DS ---
Date of admission: 11/17/17 19:01 Primary care physician: No Primary Care Physician Attending physician on discharge: Delio Adamcarolyne Anticipated date of discharge: 11/20/17 Brief History from admission: This is a 62-year-old male with a PMH of HTN and DM who presented to the ER with complaints of dizziness and unsteady gait for the last 4 days. Denies injury, trauma or fall. Denies headache, nausea, vomiting or chest pain. Has been off Metformin and Lisinopril for approx 1yr. Notes BP has been 160-170's. On arrival, BP 169/114, HR 106, O2 sat 96% on RA, Afebrile. CBC unremarkable. INR 1.0. Creatinine 1.60, previously 1.29 on 10/28/2017. Troponin negative. BS 484. UA negative. Urine Drug Screen negative. CXR with new patchy opacity left upper lobe, nonspecific, infiltrate versus mass. CT Head w/ no acute hemorrhage, mass or infarct. DS: Diagnosis - Discharge Diagnosis (1) Dizziness Status: Acute (2) DM (diabetes mellitus) Status: Acute (3) HTN (hypertension) Status: Acute (4) Renal insufficiency Status: Acute (5) Lung mass Status: Acute DS: Medications - Discharge Medications Prescriptions: insulin aspart U-100 [Novolog U-100 Insulin aspart] 0 unit SUB-Q ACHS #1 bottle insulin detemir U-100 [Levemir U-100 Insulin] 10 unit SUB-Q BID 30 Days #1 pen meclizine 25 mg PO Q8H PRN #15 tab PRN Reason: Dizziness metformin [Glumetza] 500 mg PO BID #60 tab metoprolol tartrate 25 mg PO BID #60 tab DS: Summary Hospital Course: 62-year-old male with a PMH of HTN and DM who presented to the ER with complaints of dizziness and unsteady gait for the last 4 days. Patient was dizzy with unsteady gait. CT of the head with no acute findings. Reports noncompliance with medication, uncontrolled diabetes and hypertension possibly contributing. Hemoglobin A1c 11.2. TSH 1.71, B12 and folate within normal. PT evaluated patient and recommending rehab. Patient is living in a 3 story apartment were in there is no elevator and needs to climb up the stairs. His blood pressure needs to be manage better. He was started on Norvasc, metoprolol 25 mg twice daily continue with his lisinopril. He is also on clonidine as needed. Patient was started on Levemir 10 units twice daily. And will be restarted on metformin lower dose 500 mg twice daily. His blood glucose has been improved. Patient is waiting for authorization from insurance company. Plan to discharge in [facility]. He needs rehabilitation to go back to his apartment. Patient has met maximal benefits of hospitalization. Clinically stable for discharge. - Time Spent with Patient Total time spent providing and/or coordinating discharge services: Greater than 30 minutes - Quality: VTE Deep Vein Thrombosis/Pulmonary Embolism Present on Admission: No Exam Vital signs: Vital Signs 11/19/17 12:00 11/19/17 16:00 11/19/17 20:00 Temperature 99.0 F 98.5 F 98.2 F Pulse Rate 65 71 91 H Respiratory Rate 18 18 19 Blood Pressure 153/89 H 156/90 H 126/71 Pulse Oximetry 97 97 100 11/19/17 23:15 11/20/17 00:00 11/20/17 03:45 Temperature 98.0 F Pulse Rate 64 80 66 Respiratory Rate 16 Blood Pressure 136/69 Pulse Oximetry 99 11/20/17 03:59 11/20/17 07:25 Temperature 98.0 F 99.0 F Pulse Rate 75 62 Respiratory Rate 14 18 Blood Pressure 128/68 170/100 H Pulse Oximetry 95 96 Intake & Output 11/19/17 11/20/17 11/20/17 18:59 06:59 18:59 Intake Total 1720 / 1720 1999 Output Total 351 / 351 Balance 1369 / 1369 1999 Intake: IV 1000 / 1000 1999 NS Inj 1,000 ML @ 100 mls/hr IV 1000 / 1000 1000 / 1000 .CONT .Q10H RODNEY Rx#:[id number] Oral 720 / 720 Output: Urine 350 / 350 Stool Other: # Voids 3 Date of Last Bowel Movement 11/19/17 Narrative: GENERAL: This is a well-nourished, well-developed patient, in no apparent distress. SKIN: Warm and dry HEENT: Normocephalic. Pupils equal round and reactive. Nose without bleeding. Airway patent. NECK: Trachea midline. Supple. CARDIOVASCULAR: Regular rate and rhythm without murmurs, gallops, or rubs. RESPIRATORY: Clear to auscultation. Breath sounds equal bilaterally. No wheezes , rales, or rhonchi. GASTROINTESTINAL: Abdomen soft, non-tender, nondistended. Bowel Sounds normoactive x4. MUSCULOSKELETAL: Extremities without clubbing, cyanosis, or edema. NEUROLOGICAL: Awake and alert. Oriented to place, person. No focal neuro deficit. Moves all extremities with weak BLE. Normal speech. Results Procedures completed during hospitalization: None Labs on day of discharge: Labs from last 24 hours 11/20/17 11/20/17 11/20/17 07:41 05:35 05:35 WBC 6.5 RBC 4.75 Hgb 14.2 Hct 41.6 MCV 87.4 MCH 29.8 MCHC 34.1 RDW 13.5 Plt Count 191 MPV 8.1 Neut % (Auto) 55.8 Lymph % (Auto) 34.4 [place] % (Auto) 7.0 Eos % (Auto) 2.4 Baso % (Auto) 0.4 Neut # (Auto) 3.6 Lymph # (Auto) 2.2 [place] # (Auto) 0.5 Eos # (Auto) 0.2 Baso # (Auto) 0.0 WBC Differential . Differential Comment Auto diff final Sodium 142 Potassium 3.6 Chloride 109 H Carbon Dioxide 27.0 Anion Gap 6 BUN 18 Creatinine 1.05 Estimated GFR 71 L POC Glucose 127 H Random Glucose 132 H Calcium 8.4 L 11/19/17 11/19/17 11/19/17 20:59 16:40 12:17 WBC RBC Hgb Hct MCV MCH MCHC RDW Plt Count MPV Neut % (Auto) Lymph % (Auto) [place] % (Auto) Eos % (Auto) Baso % (Auto) Neut # (Auto) Lymph # (Auto) [place] # (Auto) Eos # (Auto) Baso # (Auto) WBC Differential Differential Comment Sodium Potassium Chloride Carbon Dioxide Anion Gap BUN Creatinine Estimated GFR POC Glucose 225 H 166 H 217 H Random Glucose Calcium - Impressions ITS Impressions Chest CT 11/17/17 00:00 CONCLUSION: 1. No lung mass is seen. The focal area of density seen on the chest x-ray is likely related to hypertrophic change at the first costochondral junction on the left. 2. Minimal fluid seen around the spleen. Chest X-Ray 11/17/17 16:27 CONCLUSION: New subtle area of patchy opacity projected over the left upper lobe. This is nonspecific and could represent an infiltrate or possible mass. Further evaluation with chest CT is recommended. Head CT 11/17/17 16:27 CONCLUSION: 1. No acute hemorrhage, mass or infarction. 2. Stable appearance of ventricular system. 3. Mild to moderate atrophic changes. . Discharge Plan - Discharge Disposition Patient Disposition: 03 Discharge to SNF - Discharge Condition Condition: Stable - Discharge Order Discharge Orders: Discharge Order (Routine); Ordered 11/20/17 Ordered By: Rene Clinton - Discharge Details Discharge Comment: DC when SNF arrangement is made - Physicians Team Primary Care Provider: [facility],No Attending Provider: Delio Anthony Other Providers: [facility],Agency ; [employer] ; [facility],Agency
[2017-11-20] MEDS ORDERED: amLODIPine 10 MG Tablet PO SCH (17:30)
[2017-11-20] MEDS: Metoprolol Tartrate 50 MG Tablet PO SCH (21:46)
[2017-11-21 07:40] VITALS: RESP 16
[2017-11-21] MEDS: Acetaminophen 325 MG Tablet PO PRN (08:13)
[2017-11-21] MEDS: Lisinopril 20 MG Tablet PO SCH (08:15)
[2017-11-21] MEDS: Metoprolol Tartrate 50 MG Tablet PO SCH (08:15)
[2017-11-21] MEDS: Insulin Detemir Inj 1,000 UNIT/10 ML Vial SQ SCH (08:16)
--- NOTE | 2017-11-21 08:18 | P.DCO ---
- Physical Therapy Order: Evaluate and treat - Occupational Therapy Order: Evaluate and treat - Home Health Nursing Order: Medical education, Signs/symptoms of disease process, Diabetic education , Medication education-adverse effect, Nursing assessment with vital signs - Certification I have seen patient Venecia Orders on 11/21/17. My clinical findings support the need for the requested home health care services because: Limited mobility due to disease progression, Deconditioned with increased weakness, Medication compliance is questionable, Limited ability to care for self, High risk of falls I certify that my clinical findings support that this patient is homebound because: Impaired cognitive ability/safety, Hx COPD - exertion dyspnea/weakness, Unsteady gait/balance
--- NOTE | 2017-11-21 08:50 | P.PN ---
Subjective Interval history: Follow-up of HTN, dizziness, unsteady gait. Patient seen and examined today. Reports he is doing okay. Reports some weakness but able to walk around but assist in his room grabbing onto the bed and the wong. Denies pain and discomfort. Denies SOB/ dyspnea. Denies chest pain, palpitations, headaches, dizziness. Denies fevers, chills, n/v/d. Denies dysuria. Discussed with patient extensively that he will be home with home care. Insurance denial for rehab. Physical Exam Vital signs: Vital Signs 11/20/17 12:00 11/20/17 15:21 11/20/17 20:00 Temperature 97.8 F 97.5 F L 98.4 F Pulse Rate 64 65 66 Respiratory Rate 18 22 16 Blood Pressure 188/96 H 172/90 H 148/79 H Pulse Oximetry 97 98 98 11/21/17 00:00 11/21/17 03:27 11/21/17 07:37 Temperature 98.5 F 98.1 F 98.2 F Pulse Rate 61 67 62 Respiratory Rate 17 17 16 Blood Pressure 132/89 165/95 H 170/97 H Pulse Oximetry 97 98 100 Intake & Output 11/20/17 11/21/17 11/21/17 18:59 06:59 18:59 Intake Total 120 / 120 Output Total 2600 / 2600 Balance -2600 / -2600 120 / 120 Intake: Oral 120 / 120 Output: Urine 2600 / 2600 Other: # Voids 2 Date of Last Bowel Movement 11/19/17 Narrative: GENERAL: This is a well-nourished, well-developed patient, in no apparent distress. SKIN: Warm and dry HEENT: Normocephalic. Pupils equal round and reactive. Nose without bleeding. Airway patent. NECK: Trachea midline. No JVD. Supple. CARDIOVASCULAR: Regular rate and rhythm without murmurs, gallops, or rubs. RESPIRATORY: Clear to auscultation. Breath sounds equal bilaterally. No wheezes , rales, or rhonchi. GASTROINTESTINAL: Abdomen soft, non-tender, nondistended. Bowel Sounds normoactive x4. MUSCULOSKELETAL: Extremities without clubbing, cyanosis, or edema. NEUROLOGICAL: Awake and alert. Oriented to time, place, person. No focal neuro deficit. Moves all extremities. Normal speech. Results - Labs CBC & Chem 7: 11/20/17 05:35 11/20/17 05:35 Laboratory Results - last 24 hr 11/20/17 11/20/17 11/20/17 13:50 18:05 21:33 POC Glucose 171 H 227 H 169 H 11/21/17 07:57 POC Glucose 142 H - Procedures None Assessment and Plan - Assessment (1) Dizziness Code(s): R42 - Dizziness and giddiness Status: Acute (2) DM (diabetes mellitus) Code(s): E11.9 - Type 2 diabetes mellitus without complications Status: Acute (3) HTN (hypertension) Code(s): I10 - Essential (primary) hypertension Status: Acute (4) Renal insufficiency Code(s): N28.9 - Disorder of kidney and ureter, unspecified Status: Acute (5) Lung mass Code(s): R91.8 - Other nonspecific abnormal finding of lung field Status: Acute - Plan 62-year-old male with a PMH of HTN and DM who presented to the ER with complaints of dizziness and unsteady gait for the last 4 days Dizziness: c/o dizziness w/ associated gait instability x4 days -CT Head w/ no acute findings -Non-compliant w/ meds, uncontrolled DM/HTN which may be contributing. -Hgb A1c 11.2, TSH 1.71 (WNL), B12 360, Folate >20. -PT for eval/tx, recommends rehab. CM notified -Plan for Rehab denied by insurance. -C placed for PT. HTN, Uncontrolled. -Off BP meds x1yr -Lisinopril, metoprolol 50mg BID, -Monitor trend -Continue adjustments in the outpatient Lung Mass -CXR w/ questionable lung mass SONIA -CT Chest no lung mass. The focal air density seen on chest x-ray is likely related to hypertrophic changes at the first costochondral junction of the left. Minimal fluid seen around the spleen. DUDLEY, Creatinine 1.60, previously 1.29 on 10/28/17 -monitor I/O, IVF for hydration, U/a negative. -Repeat 1.08 --> 1.05 DM: Uncontrolled, off Metformin x1yr -Recent CT contract cont metformin hold during hospitalization -Sliding scale w/ Accu-checks. -Hemoglobin A1c 11.2. Levemir 10 units twice daily. -Restart metformin and Levimer at home. DM education HHC. DVT Prophylaxis: SCD/Teds DC home today with HHC Code Status: Full code Discussed Condition With: Patient, nursing, CM Discharge Planning: DC to home with HHC (2) DM (diabetes mellitus) Qualifiers: Diabetes mellitus type: type 2
[2017-11-21] MEDS ORDERED: Butalbital/APAP/Caff 50/325/40 MG Tablet PO ONE (10:15)
[2017-11-21 11:02] VITALS: PULSE 64; TEMP 97.9; O2SAT 99
[2017-11-21 12:32] VITALS: BP 157/85
== END 2017-11-21 15:15 | disposition home health service (06) ==
LOC: NEDA 16:01 → NEPHCDU 16:01 → NEPE 16:01 → NEPHCDU 20:39
PROVIDERS: ADMIT Hospitalist; ATTEND Hospitalist
DX: F17.210 Nicotine dependence, cigarettes, uncomplicated; Z79.899 Other long term (current) drug therapy; Z91.14 Patient's other noncompliance with medication regimen; Z86.73 Personal history of transient ischemic attack (TIA), and cerebral infarction without residual deficits; Z79.4 Long term (current) use of insulin; N17.9 Acute kidney failure, unspecified; R91.8 Other nonspecific abnormal finding of lung field; R94.31 Abnormal electrocardiogram [ECG] [EKG]; I87.8 Other specified disorders of veins; R53.1 Weakness; R42 Dizziness and giddiness; E11.65 Type 2 diabetes mellitus with hyperglycemia; F12.90 Cannabis use, unspecified, uncomplicated; I10 Essential (primary) hypertension